=== PATIENT | female | born 1945 | race Caucasian/White ===

== ENCOUNTER → 2018-02-27 09:20 | Outpatient (CLI) | payer MEDICARE, OTHER, SELFPAY ==
[2018-02-27 12:52] LABS: Absolute Neutrophil Count 5.1 X10^3/uL (2.0-7.7); Basophil# 0.03 X10^3/uL; Basophil% 0.4 % (0-1); Eosinophil# 0.03 X10^3/uL; Eosinophils% 0.4 % (0-5); Hematocrit 42.5 % (37-47); Lymphocyte % 19.9 % (19-41); Mean Corp Hgb Conc 32.9 g/gl (32-36); Mean Corpuscular Hgb 29.8 pg (27.0-32.0); Mean Corpuscular Volume 90.4 fL (81-99); Mean Platelet Vol. 10.8 fl (6.2-12.0); Monocyte% 7.1 % (0-10); Neutrophil # 5.08 X10^3/uL (2.7-7.7); Neutrophil % 72.1 % (47-70); POSITIVE COUNT NO; POSITIVE DIFFERENTIAL NO; POSITIVE MORPHOLOGY NO; Platelet Count 259 K/mm3 (150-450); RBC Distribution Width CV 13.4 % (11.6-14.6); RBC Distribution Width SD 43.9 fl (35.1-43.9); White Blood Count 7.1 K/mm3 (4.4-11.0)
[2018-02-27 13:23] LABS: ALB/GLOB Ratio 1.2 RATIO (0.9-2.4); AST(SGOT) 17 U/L (15-37); Alanine Aminotransfer ALT/SGPT 23 U/L (13-56); Alkaline Phosphatase 85 U/L (45-117); Anion Gap 9 (5-15); BUN 19 mg/dL (7-18); BUN/Creat Ratio 23.1 RATIO (10-20); Chloride 107 mmol/L (98-107); Creatinine, Serum 0.82 mg/dL (0.55-1.02); EST Glomerular Filtration Rate 73 mL/min (>60); Est Glom Filt Rate - Afr Amer 88 mL/min (>60); Globulin 3.3 g/dL (2.2-4.2); Glucose 97 mg/dL (74-106); Potassium 4.6 mmol/L (3.5-5.1); Protein, Total 7.3 g/dL (6.4-8.2); Sodium Level 144 mmol/L (136-145); Thyroid Stim Hormone (TSH) 2.52 uIU/mL (0.358-3.74)
[2018-02-28 08:13] LABS: Hep C Antibodies <0.1 s/co ratio (0.0-0.9); Vitamin D,25 Hydroxy 21.2 ng/mL (29.95-100.01)
== END ==
PROVIDERS: Family Provider Family Medicine Geriatric Medicine; PCP Family Medicine Geriatric Medicine; Visit Provider Family Medicine Geriatric Medicine
DX: E55.9 Vitamin D deficiency, unspecified (principal); R53.83 Other fatigue; Z13.89 Encounter for screening for other disorder
CPT/HCPCS: 36415; 80053; 82306; 84443; 85025; 86803

== ENCOUNTER → 2018-04-01 10:48 | Outpatient (CLI) | payer MEDICARE, OTHER, SELFPAY | PROVIDERS: Family Provider Family Medicine Geriatric Medicine; PCP Family Medicine Geriatric Medicine; Visit Provider Family Medicine Geriatric Medicine | DX: Z78.0 Asymptomatic menopausal state (principal) | CPT/HCPCS: 77080 ==

== ENCOUNTER → 2019-03-02 | Outpatient (CLI) | payer MEDICARE, OTHER, SELFPAY ==
[2019-03-02 12:31] LABS: Absolute Lymphocyte Count 1.25 X10^3/uL (0.83-4.51); Absolute Neutrophil Count 5.6 X10^3/uL (2.0-7.7); Basophil# 0.04 X10^3/uL; Basophil% 0.5 % (0-1); Eosinophil# 0.04 X10^3/uL; Eosinophils% 0.5 % (0-5); Hematocrit 43.2 % (37-47); Hemoglobin 14.1 g/dL (12.0-15.0); Lymphocyte # 1.25 X10^3/ul (4.0); Lymphocyte % 16.8 % (19-41); Mean Corp Hgb Conc 32.6 g/dL (32-36); Mean Corpuscular Hgb 29.7 pg (27.0-32.0); Mean Corpuscular Volume 91.1 fL (81-99); Mean Platelet Vol. 10.5 fl (6.2-12.0); Monocyte# 0.48 X10^3/uL; Monocyte% 6.5 % (0-10); NRBC Flagged by Analyzer 0 % (0-5); Neutrophil # 5.59 X10^3/uL (2.7-7.7); Neutrophil % 75.2 % (47-70); Platelet Count 230 K/mm3 (150-450); RBC Distribution Width CV 12.9 % (11.6-14.6); RBC Distribution Width SD 42.5 fl (35.1-43.9); Red Blood Count 4.74 M/mm3 (4.2-5.4); White Blood Count 7.4 K/mm3 (4.4-11.0)
[2019-03-02 12:52] LABS: Vitamin D,25 Hydroxy 19.9 ng/mL (29.95-100.01)
[2019-03-02 13:27] LABS: ALB/GLOB Ratio 1.2 RATIO (0.9-2.4); AST(SGOT) 20 U/L (15-37); Alanine Aminotransfer ALT/SGPT 25 U/L (13-56); Albumin, Serum 3.8 g/dL (3.2-5.0); Alkaline Phosphatase 92 U/L (45-117); Anion Gap 9 (5-15); BUN 18 mg/dL (7-18); BUN/Creat Ratio 22.7 RATIO (10-20); Calcium,Total 8.5 mg/dL (8.5-10.1); Chloride 107 mmol/L (98-107); Creatinine, Serum 0.79 mg/dL (0.55-1.02); EST Glomerular Filtration Rate 75 mL/min (>60); Est Glom Filt Rate - Afr Amer 91 mL/min (>60); Globulin 3.3 g/dL (2.2-4.2); Glucose 89 mg/dL (74-106); Protein, Total 7.1 g/dL (6.4-8.2); Sodium Level 142 mmol/L (136-145); Thyroid Stim Hormone (TSH) 3.52 uIU/mL (0.358-3.74)
== END | disposition home or self-care (01) ==
LOC: POLAB3 10:18
PROVIDERS: Family Provider Family Medicine Geriatric Medicine; PCP Family Medicine Geriatric Medicine; Visit Provider Family Medicine Geriatric Medicine
DX: E55.9 Vitamin D deficiency, unspecified (principal); R53.83 Other fatigue
CPT/HCPCS: 36415; 80053; 82306; 84443; 85025

== ENCOUNTER → 2020-03-04 | Outpatient (CLI) | payer MEDICARE, OTHER, SELFPAY ==
[2020-03-04 12:26] LABS: Absolute Lymphocyte Count 1.53 X10^3/uL (0.83-4.51); Absolute Neutrophil Count 5.6 X10^3/uL (2.0-7.7); Basophil# 0.06 X10^3/uL; Basophil% 0.8 % (0-1); Eosinophil# 0.08 X10^3/uL; Hematocrit 43.3 % (37-47); Lymphocyte # 1.53 X10^3/ul (4.0); Lymphocyte % 19.6 % (19-41); Mean Corp Hgb Conc 32.3 g/dL (32-36); Mean Corpuscular Hgb 29.7 pg (27.0-32.0); Mean Corpuscular Volume 91.9 fL (81-99); Mean Platelet Vol. 10.6 fl (6.2-12.0); Monocyte# 0.55 X10^3/uL; Monocyte% 7.1 % (0-10); NRBC Flagged by Analyzer 0 % (0-5); Neutrophil # 5.57 X10^3/uL (2.7-7.7); Neutrophil % 71.4 % (47-70); Platelet Count 255 K/mm3 (150-450); RBC Distribution Width CV 12.7 % (11.6-14.6); Red Blood Count 4.71 M/mm3 (4.2-5.4); White Blood Count 7.8 K/mm3 (4.4-11.0)
[2020-03-04 12:45] LABS: Vitamin D,25 Hydroxy 32.2 ng/mL
[2020-03-04 12:50] LABS: ALB/GLOB Ratio 1.3 RATIO (0.9-2.4); AST(SGOT) 17 U/L (15-37); Alanine Aminotransfer ALT/SGPT 21 U/L (13-56); Albumin, Serum 3.9 g/dL (3.2-5.0); Alkaline Phosphatase 80 U/L (45-117); Anion Gap 5 (5-15); BUN 18 mg/dL (7-18); BUN/Creat Ratio 21.3 RATIO (10-20); Calcium,Total 8.7 mg/dL (8.5-10.1); Chloride 107 mmol/L (98-107); Creatinine, Serum 0.85 mg/dL (0.55-1.02); EST Glomerular Filtration Rate 70 mL/min (>60); Est Glom Filt Rate - Afr Amer 84 mL/min (>60); Globulin 3.1 g/dL (2.2-4.2); Glucose 101 mg/dL (74-106); Potassium 3.9 mmol/L (3.5-5.1); Sodium Level 141 mmol/L (136-145)
== END | disposition home or self-care (01) ==
LOC: POLAB3 10:58
PROVIDERS: PCP Family Medicine Geriatric Medicine; Visit Provider Family Medicine Geriatric Medicine
DX: E55.9 Vitamin D deficiency, unspecified (principal); R53.83 Other fatigue
CPT/HCPCS: 36415; 80053; 82306; 84443; 85025

== ENCOUNTER → 2020-04-21 | Outpatient (CLI) | payer MEDICARE, OTHER, SELFPAY ==
[2020-04-21 13:26] LABS: Thyroid Stim Hormone (TSH) 1.43 uIU/mL (0.358-3.74)
== END | disposition home or self-care (01) ==
LOC: POLAB3 12:09
PROVIDERS: PCP Family Medicine Geriatric Medicine; Visit Provider Family Medicine Geriatric Medicine
DX: E03.9 Hypothyroidism, unspecified (principal)
CPT/HCPCS: 36415; 84443

== ENCOUNTER → 2021-01-05 12:51 | Outpatient (CLI) | payer MEDICARE, OTHER, SELFPAY ==
--- NOTE | 2021-01-05 12:56 | ECHOD_ITS ---
Reason For Study: CARDIOMEGALY Procedure This was a 2D Doppler, Color Flow transthoracic echocardiogram. Exam performed in department. Left Ventricle Normal LV size. Left ventricular systolic function is normal. The estimated ejection fraction is 60 %. Stage 1 diastolic dysfunction. No regional wall motion abnormalities noted. Right Ventricle Normal RV size. Normal systolic function. Atria Normal left atrium. Normal right atrium. Mitral Valve Normal mitral valve. Tricuspid Valve Normal tricuspid valve. Mild (1+) tricuspid valve insufficiency. Pulmonary artery systolic pressure is 28 mmHg. Aortic Valve Trisinus/trileaflet aortic valve. Normal aortic valve. Mild (1+) aortic valve insufficiency. Pulmonic Valve The pulmonic valve is not well visualized. Great Vessels Normal aortic root. The pulmonary artery is normal size. Normal inferior vena cava. Pericardium/Pleural No pericardial effusion. MMode/2D Measurements & Calculations LVIDd: 3.6 cm IVSd: 0.87 cm Ao root diam: 2.7 cm LVIDs: 2.5 cm LVPWd: 0.87 cm RVDd: 2.5 cm FS: 32.6 % LAV(MOD-bp): 27.2 ml LA A4 area: 11.2 cm2 LA dimension(2D): 2.8 cm LAV(MOD-bp) Indexed: 16.8 ml/m2 LAV(MOD-sp2): 23.2 ml LAV(MOD-sp4): 24.5 ml RA A4 area: 12.4 cm2 Time Measurements MV dec time: 0.18 sec Doppler Measurements & Calculations MV E max tomás: 60.9 cm/sec Lat Peak E' Tomás: 8.9 cm/sec Med Peak E' Tomás: 6.3 cm/sec MV A max tomás: 66.5 cm/sec E/E' lat: 6.8 E/E' med: 9.7 MV E/A: 0.92 Ao V2 max: 97.1 cm/sec AI max tomás: 470.9 cm/sec LV V1 max: 94.4 cm/sec Ao max P.8 mmHg AI max P.7 mmHg LV V1 max P.6 mmHg Ao V2 mean: 62.2 cm/sec AI dec slope: 389.6 cm/sec2 LV V1 mean P.8 mmHg Ao mean P.7 mmHg AI P1/2t: 354.0 msec LV V1 mean: 62.5 cm/sec Ao V2 VTI: 19.3 cm LV V1 VTI: 20.0 cm PA V2 max: 108.9 cm/sec TR max tomás: 243.9 cm/sec TR max P.8 mmHg ECHO/Echo Complete Interpretation Summary Normal LV size. Left ventricular systolic function is normal. The estimated ejection fraction is 60 %. Stage 1 diastolic dysfunction. Mild (1+) aortic valve insufficiency. Ordering Physician: Serge Ladd Referring Physician: Serge Ladd Chi Performed By: Gianna Barr, MICHELE, RVT
--- NOTE | 2021-01-05 14:35 | BD_ITS ---
STUDY: DUAL ENERGY X-RAY ABSORPTIOMETRY / DXA REASON FOR EXAM: Female, 75 years old. [id number]. The patient is postmenopausal. TECHNIQUE: Bone Mineral Density (BMD) measurements of lumbar spine and bilateral hips were obtained. COMPARISON: Comparison is made with prior study dated 04/01/2018. FINDINGS: Lumbar Spine (L1-L4): g/cm2 (1.167) / T-score (-0.1) / Z-score (1.7) Findings are suggestive of normal bone density with a low fracture risk. Left Femur Total: g/cm2 (0.913) / T-score (-0.8) / Z-score (1.0) Left Femoral Neck: g/cm2 (0.810) / T-score (-1.6) / Z-score (0.3) Right Femur Total: g/cm2 (0.948) / T-score (-0.5) / Z-score (1.3) Right Femoral Neck: g/cm2 (0.816) / T-score (-1.6) / Z-score (0.4) The T-Scores on the most recent prior examination were: Lumbar Spine (L1-L4): There has been improvement of bone density since the previous examination. Left Femur Total: which represents a worsening of 2.8%. Right Femur Total: which represents an improvement of 1.9%. BD/Dexa Bone Density Study IMPRESSION: The patient is considered osteopenic as outlined below according to World D[employer]han Organization (WHO) criteria with a moderate fracture risk. There has been improvement of bone density since the previous examination. Reference Information: The T-score is the number of standard deviations above or below the standard which is normal for young adults at their peak bone mineral density. The World Health Organization (WHO) interprets the T-scores as follows: Above -1 Normal bone density Between -1 and -2.5 Osteopenia Equal to / or below -2.5 Osteoporosis As a practical clinical guideline, osteopenia may be graded as follows: Mild -1 through -1.5 Moderate -1.6 through -2.0 Severe -2.1 through -2.4 The Z-score is the number of standard deviations above or below age-matched controls. A Z-score of less than -1.5 would be considered abnormal. References: 1. NIH Osteoporosis and Related Bone Diseases www osteo.org 2. International Society for Clinical Densitometry www iscd.org 3. National Osteoporosis Foundation www nof.org Electronically Signed: John Hernandez MD at 15:19 EDT , Service support ,
== END ==
PROVIDERS: PCP Family Medicine Geriatric Medicine; Referring Provider Family Medicine Geriatric Medicine; Visit Provider Family Medicine Geriatric Medicine
DX: I51.7 Cardiomegaly (principal); Z78.0 Asymptomatic menopausal state
CPT/HCPCS: 77080; 93306

== ENCOUNTER → 2021-03-06 09:51 | Outpatient (CLI) | payer MEDICARE, OTHER, SELFPAY ==
[2021-03-06 12:43] LABS: Absolute Lymphocyte Count 1.23 X10^3/uL (0.83-4.51); Basophil# 0.05 X10^3/uL; Basophil% 0.7 % (0-1); Eosinophils% 1.4 % (0-5); Hematocrit 42.2 % (37-47); Hemoglobin 13.7 g/dL (12.0-15.0); Lymphocyte # 1.23 X10^3/ul (0.83-4.51); Lymphocyte % 17.6 % (19-41); Mean Corp Hgb Conc 32.5 g/dL (32-36); Mean Corpuscular Hgb 29.5 pg (27.0-32.0); Mean Corpuscular Volume 90.9 fL (81-99); Mean Platelet Vol. 10.2 fl (6.2-12.0); Monocyte# 0.61 X10^3/uL; Monocyte% 8.7 % (0-10); NRBC Flagged by Analyzer 0 % (0-5); Neutrophil # 4.99 X10^3/uL (2.7-7.7); Neutrophil % 71.3 % (47-70); Platelet Count 245 K/mm3 (150-450); RBC Distribution Width CV 13.2 % (11.6-14.6); RBC Distribution Width SD 44.4 fl (35.1-43.9); Red Blood Count 4.64 M/mm3 (4.2-5.4)
[2021-03-06 12:49] LABS: Vitamin D,25 Hydroxy 27.4 ng/mL
[2021-03-06 13:19] LABS: ALB/GLOB Ratio 1.2 RATIO (0.9-2.4); AST(SGOT) 20 U/L (15-37); Alanine Aminotransfer ALT/SGPT 27 U/L (13-56); Albumin, Serum 3.7 g/dL (3.2-5.0); Alkaline Phosphatase 82 U/L (45-117); Anion Gap 7 (5-15); BUN 20 mg/dL (7-18); BUN/Creat Ratio 25.9 RATIO (10-20); Calcium,Total 8.5 mg/dL (8.5-10.1); Chloride 106 mmol/L (98-107); Creatinine, Serum 0.77 mg/dL (0.55-1.02); EST Glomerular Filtration Rate 77 mL/min (>60); Est Glom Filt Rate - Afr Amer 93 mL/min (>60); Globulin 3.2 g/dL (2.2-4.2); Glucose 90 mg/dL (74-106); Potassium 4.1 mmol/L (3.5-5.1); Protein, Total 6.9 g/dL (6.4-8.2); Sodium Level 140 mmol/L (136-145); Thyroid Stim Hormone (TSH) 2.58 uIU/mL (0.358-3.74)
== END ==
PROVIDERS: PCP Family Medicine Geriatric Medicine; Visit Provider Family Medicine Geriatric Medicine
DX: E55.9 Vitamin D deficiency, unspecified (principal); R53.83 Other fatigue
CPT/HCPCS: 36415; 80053; 82306; 84443; 85025

== ENCOUNTER → 2021-06-05 16:21 | Outpatient (CLI) | payer MEDICARE, OTHER, SELFPAY ==
--- NOTE | 2021-06-05 16:25 | RAD_ITS ---
HISTORY: ABD PAIN. TECHNIQUE: XR Abdomen W/ Decub and/or Erect Views. # of images incl. paperwork: 3. COMPARISON: None. FINDINGS: LUNG BASES: Mild left basilar opacity, likely atelectasis. Moderate stool throughout the colon. FREE AIR: None seen on upright view. BOWEL GAS PATTERN: No dilated bowel loops identified. Moderate stool in the colon. CALCIFICATIONS: Right pelvic phlebolith noted. BONES: Mild lumbar dextrocurvature. RAD/[employer]d [employer] Decub and/or Erect IMPRESSION: Moderate stool in the colon. at 1407 Reported and signed by: Renetta Glynn MD Electronically Signed: Renetta Glynn MD at 14:06 EDT Tel , Service support ,
== END ==
PROVIDERS: PCP Family Medicine Geriatric Medicine; Referring Provider Family Medicine Geriatric Medicine; Visit Provider Family Medicine Geriatric Medicine
DX: N39.0 Urinary tract infection, site not specified (principal); R10.9 Unspecified abdominal pain
CPT/HCPCS: 74019; 87086

== ENCOUNTER → 2022-03-07 | Outpatient (CLI) | payer MEDICARE, OTHER, SELFPAY ==
[2022-03-07 12:08] LABS: Absolute Neutrophil Count 6.2 X10^3/uL (2.0-7.7); Basophil# 0.05 X10^3/uL; Basophil% 0.6 % (0-1); Eosinophil# 0.07 X10^3/uL; Eosinophils% 0.8 % (0-5); Lymphocyte % 16.4 % (19-41); Mean Corp Hgb Conc 32.6 g/dL (32-36); Mean Corpuscular Hgb 29.7 pg (27.0-32.0); Mean Corpuscular Volume 91.1 fL (81-99); Mean Platelet Vol. 10.6 fl (6.2-12.0); Monocyte# 0.77 X10^3/uL; NRBC Flagged by Analyzer 0 % (0-5); Neutrophil # 6.21 X10^3/uL (2.7-7.7); Neutrophil % 72.8 % (47-70); Platelet Count 262 K/mm3 (150-450); RBC Distribution Width CV 12.8 % (11.6-14.6); RBC Distribution Width SD 42.8 fl (35.1-43.9); Red Blood Count 4.72 M/mm3 (4.2-5.4); White Blood Count 8.5 K/mm3 (4.4-11.0)
[2022-03-07 12:32] LABS: Vitamin D,25 Hydroxy 37.5 ng/mL
[2022-03-07 12:37] LABS: ALB/GLOB Ratio 1.3 RATIO (0.9-2.4); AST(SGOT) 21 U/L (15-37); Alanine Aminotransfer ALT/SGPT 22 U/L (13-56); Albumin, Serum 3.9 g/dL (3.2-5.0); Alkaline Phosphatase 69 U/L (45-117); Anion Gap 4 (5-15); BUN 21 mg/dL (7-18); BUN/Creat Ratio 24.5 RATIO (10-20); Calcium,Total 9.4 mg/dL (8.5-10.1); Chloride 106 mmol/L (98-107); Creatinine, Serum 0.86 mg/dL (0.55-1.02); EST Glomerular Filtration Rate 68 mL/min (>60); Est Glom Filt Rate - Afr Amer 83 mL/min (>60); Globulin 3.1 g/dL (2.2-4.2); Glucose 83 mg/dL (74-106); Potassium 4.7 mmol/L (3.5-5.1); Sodium Level 141 mmol/L (136-145); Thyroid Stim Hormone (TSH) 1.92 uIU/mL (0.358-3.74)
== END | disposition home or self-care (01) ==
LOC: POLAB3 11:21
PROVIDERS: PCP Family Medicine Geriatric Medicine; Visit Provider Family Medicine Geriatric Medicine
DX: E55.9 Vitamin D deficiency, unspecified (principal); R53.83 Other fatigue
CPT/HCPCS: 36415; 80053; 82306; 84443; 85025

== ENCOUNTER → 2023-03-11 | Outpatient (CLI) | payer MEDICARE, OTHER, SELFPAY ==
[2023-03-11 12:35] LABS: Absolute Lymphocyte Count 1.38 X10^3/uL (0.83-4.51); Absolute Neutrophil Count 5.5 X10^3/uL (2.0-7.7); Basophil# 0.04 X10^3/uL; Basophil% 0.5 % (0-1); Eosinophil# 0.06 X10^3/uL; Eosinophils% 0.8 % (0-5); Hematocrit 43.1 % (37-47); Hemoglobin 14.2 g/dL (12.0-15.0); Lymphocyte # 1.38 X10^3/ul (0.83-4.51); Lymphocyte % 18.3 % (19-41); Mean Corp Hgb Conc 32.9 g/dL (32-36); Mean Corpuscular Hgb 30.3 pg (27.0-32.0); Mean Corpuscular Volume 92.1 fL (81-99); Mean Platelet Vol. 10.4 fl (6.2-12.0); Monocyte# 0.51 X10^3/uL; Monocyte% 6.8 % (0-10); NRBC Flagged by Analyzer 0 % (0-5); Neutrophil # 5.53 X10^3/uL (2.7-7.7); Neutrophil % 73.2 % (47-70); Platelet Count 243 K/mm3 (150-450); RBC Distribution Width CV 13.2 % (11.6-14.6); RBC Distribution Width SD 44.5 fl (35.1-43.9); Red Blood Count 4.68 M/mm3 (4.2-5.4); White Blood Count 7.6 K/mm3 (4.4-11.0)
[2023-03-11 12:53] LABS: Vitamin D,25 Hydroxy 37.1 ng/mL
[2023-03-11 14:35] LABS: ALB/GLOB Ratio 1.1 RATIO (0.9-2.4); AST(SGOT) 24 U/L (15-37); Alanine Aminotransfer ALT/SGPT 23 U/L (13-56); Albumin, Serum 3.7 g/dL (3.2-5.0); Alkaline Phosphatase 72 U/L (45-117); Anion Gap 5 (5-15); BUN 18 mg/dL (7-18); BUN/Creat Ratio 19.7 RATIO (10-20); Calcium,Total 8.6 mg/dL (8.5-10.1); Chloride 109 mmol/L (98-107); Creatinine, Serum 0.91 mg/dL (0.55-1.02); EST Glomerular Filtration Rate 63 mL/min (>60); Est Glom Filt Rate - Afr Amer 77 mL/min (>60); Globulin 3.3 g/dL (2.2-4.2); Glucose 102 mg/dL (74-106); Potassium 4.2 mmol/L (3.5-5.1); Sodium Level 141 mmol/L (136-145); Thyroid Stim Hormone (TSH) 2.25 uIU/mL (0.358-3.74)
== END | disposition home or self-care (01) ==
PROVIDERS: PCP Family Medicine Geriatric Medicine; Visit Provider Family Medicine Geriatric Medicine
DX: E55.9 Vitamin D deficiency, unspecified (principal); R53.83 Other fatigue
CPT/HCPCS: 36415; 80053; 82306; 84443; 85025

== ENCOUNTER → 2024-03-17 | Outpatient (CLI) | payer MEDICARE, OTHER, SELFPAY ==
[2024-03-17 10:53] LABS: Absolute Lymphocyte Count 1.33 X10^3/uL (0.83-4.51); Absolute Neutrophil Count 6.2 X10^3/uL (2.0-7.7); Basophil# 0.04 X10^3/uL; Basophil% 0.5 % (0-1); Eosinophil# 0.05 X10^3/uL; Eosinophils% 0.6 % (0-5); Hematocrit 42.2 % (37-47); Hemoglobin 13.9 g/dL (12.0-15.0); Lymphocyte # 1.33 X10^3/ul (0.83-4.51); Mean Corp Hgb Conc 32.9 g/dL (32-36); Mean Corpuscular Hgb 29.9 pg (27.0-32.0); Mean Corpuscular Volume 90.8 fL (81-99); Mean Platelet Vol. 10.7 fl (6.2-12.0); Monocyte# 0.66 X10^3/uL; NRBC Flagged by Analyzer 0 % (0-5); Neutrophil # 6.18 X10^3/uL (2.7-7.7); Neutrophil % 74.5 % (47-70); Platelet Count 243 K/mm3 (150-450); RBC Distribution Width CV 12.9 % (11.6-14.6); RBC Distribution Width SD 42.6 fl (35.1-43.9); Red Blood Count 4.65 M/mm3 (4.2-5.4); White Blood Count 8.3 K/mm3 (4.4-11.0)
[2024-03-17 11:40] LABS: ALB/GLOB Ratio 1.1 RATIO (0.9-2.4); AST(SGOT) 18 U/L (15-37); Alanine Aminotransfer ALT/SGPT 22 U/L (13-56); Albumin, Serum 3.8 g/dL (3.2-5.0); Alkaline Phosphatase 77 U/L (45-117); Anion Gap 5 (5-15); BUN 19 mg/dL (7-18); BUN/Creat Ratio 21.1 RATIO (10-20); Calcium,Total 9.2 mg/dL (8.5-10.1); Chloride 107 mmol/L (98-107); EST Glomerular Filtration Rate 64 mL/min (>60); Est Glom Filt Rate - Afr Amer 78 mL/min (>60); Globulin 3.4 g/dL (2.2-4.2); Glucose 101 mg/dL (74-106); Protein, Total 7.2 g/dL (6.4-8.2); Sodium Level 141 mmol/L (136-145)
== END | disposition home or self-care (01) ==
PROVIDERS: PCP Family Medicine Geriatric Medicine; Visit Provider Family Medicine Geriatric Medicine
DX: R53.83 Other fatigue (principal); E55.9 Vitamin D deficiency, unspecified
CPT/HCPCS: 36415; 80053; 82306; 84443; 85025

== ENCOUNTER → 2024-12-23 | Outpatient (CLI) | payer MEDICARE, OTHER, SELFPAY ==
--- NOTE | 2024-12-23 13:51 | LES_PTH ---
PATIENT: RENET[facility] LA [facility] U[facility][id number] AGE/SX: 79/F ROOM: RE12/23/[address]: Dr. Serge Ladd MD : 1945 BED: DIS: 12/23/2024 SPEC #: [id number] RECD: 12/23/24 17:55 STATUS: SADAF LUIS MANUEL #: [id number] JIMMIE: 12/23/24 13:[address]: Serge Ladd Chi DEPT: SURGICAL PATHOLOGY RECD BY: Arturo David Tissues: A - Skin of leg, NOS Procedures: Surgery Specimen Level IV HEADER OPERATION: Not noted PRE-OP DIAGNOSIS: Inflamed seborrheic keratosis, disorder of skin and subcutaneous tissue, unspecified TISSUE SUBMITTED: A- Right hip lesion MICROSCOPIC DIAGNOSIS A. Skin, right hip, shave biopsy: * Verrucous keratosis with acute and chronic inflammation - see note. * Note: The entire base of the lesion is not observed in this shaved specimen. MICROSCOPIC DESCRIPTION Slides are reviewed. GROSS DESCRIPTION A. Received in formalin in a container labeled with the patient's name, date of , and R hip is an unoriented and irregular skin shave measuring 1.1 x 1.0 cm with a depth of 0.1 cm. The white-ramirez epidermis is notable for a 0.8 x 0.7 x 0.5 cm roughened and ramirez nodule situated 0.1 cm from the peripheral margin. The deep margin is inked green, and it is quadrisected to reveal that the nodule exhibits carlin and indurated surfaces that appear to abut the deep margin. Submitted entirely in A1. [facility] 12-24-2024 CPT:73355
== END | disposition home or self-care (01) ==
LOC: LABSPEC 16:52
PROVIDERS: PCP Family Medicine Geriatric Medicine; Referring Provider Family Medicine Geriatric Medicine; Visit Provider Family Medicine Geriatric Medicine
DX: L82.0 Inflamed seborrheic keratosis (principal)
CPT/HCPCS: 88305

== ENCOUNTER → 2025-03-18 | Outpatient (CLI) | payer MEDICARE, OTHER, SELFPAY ==
[2025-03-18 10:10] LABS: Hematocrit 41.5 % (37-47); Hemoglobin 13.5 g/dL (12.0-15.0); Immature Granulocytes Count 0.020 X10^3/uL (0.0-0.0); Mean Corp Hgb Conc 32.5 g/dL (32-36); Mean Corpuscular Volume 91.2 fL (81-99); Mean Platelet Vol. 10.1 fl (6.2-12.0); NRBC Flagged by Analyzer 0 % (0-5); Platelet Count 229 K/mm3 (150-450); RBC Distribution Width CV 13.2 % (11.6-14.6); RBC Distribution Width SD 44.3 fl (35.1-43.9); Red Blood Count 4.55 M/mm3 (4.2-5.4); White Blood Count 7.9 K/mm3 (4.4-11.0)
[2025-03-18 11:24] LABS: AST(SGOT) 27 U/L (<=31); Alanine Aminotransfer ALT/SGPT 19 U/L (<=34); Albumin, Serum 4.5 g/dL (3.4-4.8); Alkaline Phosphatase 77 U/L (35-104); Anion Gap 12 (5-15); BUN 21 mg/dL (4-19); BUN/Creat Ratio 26.1 RATIO (10-20); Calcium,Total 9.0 mg/dL (7.6-11.0); Carbon Dioxide 24.7 mmol/L (21.0-32.0); Chloride 105 mmol/L (98-108); Globulin 2.3 g/dL (2.2-4.2); Glucose 104 mg/dL (70-99); Potassium 4.3 mmol/L (3.3-5.1); Vitamin D,25 Hydroxy 39.3 ng/mL (30-100)
[2025-03-18 17:59] LABS: Xtra Tube Kwok EXTRA TUBE
== END | disposition home or self-care (01) ==
PROVIDERS: PCP Family Medicine Geriatric Medicine; Visit Provider Family Medicine Geriatric Medicine
DX: E03.9 Hypothyroidism, unspecified (principal); E55.9 Vitamin D deficiency, unspecified; R53.83 Other fatigue
CPT/HCPCS: 36415; 80053; 82306; 84443; 85025

== ENCOUNTER → 2025-05-11 | Outpatient (CLI) | payer MEDICARE, OTHER, SELFPAY ==
--- OUTSIDE RECORDS SUMMARY | 2025-01-26 14:36 | XMS RPT_ITS ---
Author Name Auto Generated Organization [facility] Care Team Providers [facility] Specialist Name Role Phone SAMANTHA, PHYLICIA CHI Primary Care Unavailable VINCE JO Attending Unavailable SAMANTHA, PHYLICIA CHI Primary Care Unavailable KATHRINE, IESHA L Attending Unavailable SAMANTHA, PHYLICIA CHI Primary Care Unavailable KATHRINE, IESHA L Admitting Unavailable KATHRINE, IESHA L Referring Unavailable ADDISON MICHELLE Attending UnaDODIE Peguero Referring Unavaila ble SAMANTHA, PHYLICIA CHI Admitting Unavailable SAMANTHA, PHYLICIA CHI Primary Care Unavailable KATHRINE, IESHA L Referring Unavailable SAMANTHA, PHYLICIA CHI Primary Care Unavailable KATHRINE, IESHA L Attending Unavailable KATHRINE, IESHA L Attending Unavailable KATHRINE, IESHA L Referring Unavailable SAMANTHA, PHYLICIA CHI Primary Care Unavailable KATHRINE, IESHA L Referring Unavailable SAMANTHA, PHYLICIA CHI Primary Care Unavailable KATHRINE, IESHA Attending Unavailable DODIE MONTANO Referring Unavaila ble SAMANTHA, PHYLICIA CHI Admitting Unavailable SAMANTHA, PHYLICIA CHI Primary Care Unavailable PROBLEMS DATE TYPE CONDITION / CODE ATTENDING STATUS [facility] 03/22/2021 Admitting diagnosis 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) ADDISON MICHELLE ADDISON [facility] 03/01/2021 Admitting diagnosis Other specified disorders of bone density and structure, unspecified site / M85.80(ICD-10) [place]DIS[place] [facility] [place]mitting diagnosis Personal history of irradiation / Z92.3(ICD-10) [facility] 2025 Admitting diagnosis Encounter for screening for cardiovascular disorders / Z13.6(ICD-10) [facility] 11/30/2024 Admitting diagnosis Asymptomatic menopausal state / Z78.0(ICD-10) [facility] 06/06/2021 Admitting diagnosis FDC (current) use of aromatase inhibitors / Z79.811(ICD-10) NA [facility] 07/15/2024 Admitting diagnosis Follow-up / UNK(Unknown) VINCE JO [facility] 07/13/2024 Admitting diagnosis Encounter for screening mammogram for malignant neoplasm of breast / Z12.31(ICD-10) [facility] PROCEDURES No Procedure Records Found RESULTS PHOSPHATE ( PHOSPHORUS) Collected: 03/25/2025 1:04 PM Status: F Source: [facility] Order Comment: FASTING:NO FASTING: NO TYPE CODE TESTS RESULT OUT OF RANGE REFERENCE UNITS LAB [id number] PHOSPHATE ( PHOSPHORUS) 4.9 High 2.1-4.3 mg/dL Performed By: #### 61763, 16 293 #### [facility], [address] [place] [address] Telepathist: Tamara Siu MD,PhD,ROMULO #### 745, 60135, 1005 #### [facility] [address] , [address] [place] [address] Telepathist: Rafael Muse MD IGF 1, LC/MS Collected: 5 1:04 PM Status: F Source: [facility] TYPE CODE TESTS RESULT OUT OF RANGE REFERENCE UNITS LAB [id number] IGF 1, LC/MS 91 34-246 ng/mL LAB [id number] Z SCORE (FEMALE) -0.2 -2.0 - +2.0 SD Result Comment: This test was developed and its analytical performance characteristics have been determined by [facility]. It has not been cleared or approved by the FDA. This assay has been validated pursuant to the CLIA regulations and is used for clinical purposes. Performed By: #### 24095, 16 293 #### [facility], [address] [place] [address] Telepathist: Tamara Siu MD,PhD,ROMULO #### 718, 01869, 1005 #### [facility] [address], [address] [place] [address] Telepathist: Rafael Muse MD TEST AUTHORIZATION 2 Collected: 025 1:04 PM Status: F Source: [facility] TYPE CODE TESTS RESULT OUT OF RANGE REFERENCE UNITS LAB [id number] TEST NAME: IGF 1, LC/MS LAB [id number] TEST CODE: [id number] LAB [id number] CLIENT CONTACT: [facility] [id number] REPORT ALWAYS MESSAGE SIGNATURE Result Comment: The laboratory testing on this patient was verbally requested or confirmed by the ordering physician or his or her authorized chemical sales representative after contact with an employee of [employer]. Federal regulations require that we maintain on file written authorization for all laboratory testing. Accordingly we are asking that the ordering physician or his or her authorized chemical sales representative sign a copy of this report and promptly return it to the client analyst. Signature: Performed By: #### 77540, 16 293 #### [facility], [address] [place] [address] Telepathist: Tamara Siu MD,PhD,ROMULO #### 718, 85337, 1005 #### [facility] [address] Telepathist: Rafael Muse MD IGF BINDING PROTEIN 1 (IGFBP 1) Collect ed: 03/25/2025 1:04 PM Status: F Source: [facility] TYPE CODE TESTS RESULT OUT OF RANGE REFERENCE UNITS LAB [id number] IGF BINDING PROTEIN 1 (IGFBP 1) 13 5-34 ng/mL Result Comment: The limit of detection of this assay is 5 ng/mL. A proportion of normal patients will have results less than 5 ng/mL. This test was developed and its analytical performance characteristics have been determined by [employer]. It has not been cleared or approved by the FDA. This assay has been validated pursuant to the CLIA regulations and is used for clinical purposes. Performed By: #### 65318, 16 293 #### [facility], [address] [place] [address] Telepathist: Tamara Siu MD,PhD,ROMULO #### 718, 73979, 1005 #### [facility] [place] [address] Telepathist: Rafael Muse MD TEST AUTHORIZATION Collected: 1:04 PM Status: F Source: [facility] TYPE CODE TESTS RESULT OUT OF RANGE REFERENCE UNITS LAB [id number] TEST NAME: IGF BINDING PROTEIN 1 LAB [id number] TEST CODE: [id number] LAB [id number] CLIENT CONTACT: TEMITOPE [facility] [id number] REPORT ALWAYS MESSAGE SIGNATURE Result Comment: The laboratory testing on this patient was verbally requested or confirmed by the ordering physician or his or her authorized chemical sales representative after contact with an employee of [employer]. Federal regulations require that we maintain on file written authorization for all laboratory testing. Accordingly we are asking that the ordering physician or his or her authorized chemical sales representative sign a copy of this report and promptly return it to the client analyst. Signature: LAB [id number] COMMENT Result Comment: Please have the ordering physician or his or her authorized chemical sales representative sign a copy of this report and promptly return it by faxing it to: [phone] or by returning the form to your project administrator. Performed By: #### 55948, 16 293 #### [facility], [address] [place] [address] Telepathist: Tamara Siu MD,PhD,ROMULO #### 718, 19350, 1005 #### [facility] [address], [address] [place] [address] Telepathist: Rafael Muse MD PTH, INTACT AND CALCIUM Collected: 01/10 10:16 AM Status: F Source: [facility] Order Comment: FASTING:YES FASTING: YES TYPE CODE TESTS RESULT OUT OF RANGE REFERENCE UNITS LAB [id number] PARATHYROID HORMONE, INTACT 36 Normal 16-77 pg/mL Result Comment: Interpretive Guide Intact PTH Calcium ------- Normal Parathyroid Normal Normal Hypoparathyroidism Low or Low Normal Low Hyperparathyroidism Primary Normal or High High Secondary High Normal or Low Tertiary High High Non-Parathyroid Hypercalcemia Low or Low Normal High LAB [id number] CALCIUM 9.4 Normal 8.6-10.4 mg/dL Performed By: #### 96718 ### # [facility] [address] [address], [address] [place] [address] Telepathist: Adi Yañez MD,PhD #### 11380, 78655 #### [facility] [address] [facility] [place] [address] Telepathist: Gary Sánchez M.D.,PhD #### 735, 0069, 062, 381, 72430, 15703, 375, 718, 223 #### [facility] [address], [address] [place] [address] Telepathist: Rafael Muse MD #### 87831 #### [facility], [address] [place] [address] Telepathist: Tamara Siu MD,PhD,ROMULO CELIAC DISEASE COMPREHENSIVE PANEL Collected: 01/25/2025 10:16 AM Status: F Source: [facility] TYPE CODE TESTS RESULT OUT OF RANGE REFERENCE UNITS LAB [id number] INTERPRETATION see note Result Comment: No serologic al evidence of celiac disease. tTG IgA may normalize in individuals with celiac disease who maintain a gluten-free diet. Consider HLA DQ2 and DQ8 testing to rule out celiac disease. Celiac disease is extremely rare in the absence of DQ2 or DQ8. LAB [id number] TISSUE TRANSGLUTAMINASE AB, IGA <1.0 <15.0 U/mL Result Comment: Value Interpretation <15.0 Antibody not detected > or = 15.0 Antibody detected LAB [id number] IMMUNOGLOBULIN A 119 70-320 mg/dL Performed By: #### 85199 ### # [facility] [address] [address], [address] [place] [address] Telepathist: Adi Yañez MD,PhD #### 02226, 92237 #### [facility] [address] [facility] [place] [address] Telepathist: Gary Sánchez M.D.,PhD #### 306, 8837, 622, 381, 16032, 15068, 375, 718, 223 #### [facility] [address], [address] [place] [address] Telepathist: Rafael Muse MD #### 58311 #### [facility], [address] [place] [address] Telepathist: Tamara Siu MD,PhD,ROMULO ALBUMIN Collected: 10:16 AM Status: F Source: [facility] TYPE CODE TESTS RESULT OUT OF RANGE REFERENCE UNITS LAB [id number] ALBUMIN 4.4 Normal 3.6-5.1 g/dL Performed By: #### 16782 ### # [facility] [address] [address], [address] [place] [address] Telepathist: Adi Yañez MD,PhD #### 45295, 42152 #### [facility]/[address] [facility] [address] [place] Telepathist: Gary Sánchez M.D.,PhD #### 306, 8837, 622, 381, 52749, 56216, 375, 718, 223 #### [facility] [address], [address] [place] [address] Telepathist: Rafael Muse MD #### 59325 #### [facility]/[address] [address] Telepathist: Tamara Siu MD,PhD,ROMULO CREATININE Collected: 10:16 AM Status: F Source: [facility] TYPE CODE TESTS RESULT OUT OF RANGE REFERENCE UNITS LAB [id number] CREATININE 0.90 Normal 0.60-0.95 mg/dL LAB [id number] EGFR 65 Normal > OR = 60 mL/min/1. 73m2 Performed By: #### 03578 ### # [facility] [address] [place] [address], [address] [place] [address] Telepathist: Adi Yañez MD,PhD #### 73231, 29860 #### [facility] [address] [facility] [address] [place] Telepathist: Gary Sánchez M.D.,PhD #### 306, 8837, 622, 381, 71292, 58671, 375, 718, 223 #### [facility] [address], [address] [place] [address] Telepathist: Rafael Muse MD #### 34566 #### [facility], [address] [place] [address] Telepathist: Tamara Siu MD,PhD,ROMULO CREATININE, 24 HOUR URINE Collected: 10:16 AM Status: F Source: [facility] TYPE CODE TESTS RESULT OUT OF RANGE REFERENCE UNITS LAB [id number] CREATININE, 24 HOUR URINE 0.76 Normal 0.50-2.15 g/24 h Result Comment: URINE VOLUME : Performed By: #### 07616 ### # [facility] [address] [address], [address] [place] [address] Telepathist: Adi Yañez MD,PhD #### 14354, 49913 #### [facility] [address] [facility] [place] Telepathist: Gary Sánchez M.D.,PhD #### 306, 8837, 622, 381, 30772, 71453, 375, 718, 223 #### [facility] [address] [facility], [address] [place] [address] Telepathist: Rafael Muse MD #### 98928 #### [facility], [address] [place] [address] Telepathist: Tamara Siu MD,PhD,ROMULO MAGNESIUM Collected: 10:16 AM Status: F Source: [facility] TYPE CODE TESTS RESULT OUT OF RANGE REFERENCE UNITS LAB [id number] MAGNESIUM 2.2 Normal 1.5-2.5 mg/dL Performed By: #### 18886 ### # [facility] [address], [address] [place] [address] Telepathist: Adi Yañez MD,PhD #### 30510, 14760 #### [facility] [address] [facility] [address] [place] Telepathist: Gary Sánchez M.D.,PhD #### 306, 8837, 622, 381, 18739, 00725, 375, 718, 223 #### [facility] [address] [address] Telepathist: Rafael Muse MD #### 16797 #### [facility], [address] [place] [address] Telepathist: Tamara Siu MD,PhD,ROMULO PHOSPHATE ( PHOSPHORUS) Collected: 10:16 AM Status: F Source: [facility] TYPE CODE TESTS RESULT OUT OF RANGE REFERENCE UNITS LAB [id number] PHOSPHATE ( PHOSPHORUS) 5.3 High 2.1-4.3 mg/dL Performed By: #### 73978 ### # [facility] [address] [address], [address] [place] [address] Telepathist: Adi Yañez MD,PhD #### 26776, 32272 #### [facility] [address] [facility] [place] [address] Telepathist: Gary Sánchez M.D.,PhD #### 306, 8837, 622, 381, 44757, 60796, 375, 718, 223 #### [facility] [address], [address] [place] [address] Telepathist: Rafael Muse MD #### 27581 #### [facility], [address] [place] [address] Telepathist: Tamara Siu MD,PhD,ROMULO C TELOPEPTIDE (CTX) Collected: 01/26/20 10:16 AM Status: F Source: [facility] TYPE CODE TESTS RESULT OUT OF RANGE REFERENCE UNITS LAB [id number] C TELOPEPTIDE (CTX) 63 see note pg/mL Result Comment: Unable to flag abnormal result(s), please refer to reference range(s) below: Reference Range, Females: <5 years: Not Established 5-9 years: 574-1849 pg/mL 10-13 years: 519-2415 pg/mL 14-17 years: 242-1291 pg/mL 18-29 years: 64-640 pg/mL 30-39 years: 60-650 pg/mL 40-49 years: 50-465 pg/mL >49 years: Not Established No reference range is provided for postmenopausal women because of the increased rate of bone turnover post-menopause. It is recommended that results for postmenopausal women be compared to the premenopausal reference range as this will give a better indication of their rate of bone loss. For additional information, please refer to https://education.[employer]/faq/PFI623 (This link is being provided for informational/ educational purposes only.) Performed By: #### 10102 ### # [facility] [address] [address], [address] [place] [address] Telepathist: Adi Yañez MD,PhD #### 88128, 63802 #### [facility] [address] [facility] [place] Telepathist: Gary Sánchez M.D.,PhD #### 306, 8837, 622, 381, 31933, 82138, 375, 718, 223 #### [facility] [address], [address] [place] [address] Telepathist: Rafael Muse MD #### 77666 #### [facility] [address] [address] Telepathist: Tamara Siu MD,PhD,ROMULO CALCIUM, 24 HOUR URINE (W/O CREATININE) Collected: 01/25/2025 10:16 AM Status: F Source: [facility] TYPE CODE TESTS RESULT OUT OF RANGE REFERENCE UNITS LAB [id number] TOTAL VOLUME 2000 mL LAB [id number] CALCIUM, 24 HOUR URINE 114 35-250 mg/24 h Result Comment: Low Calcium Diet: 35-200 mg/24h Performed By: #### 78805 ### # [facility] [address] [address], [address] [place] [address] Telepathist: Adi Yañez MD,PhD #### 77442, 89243 #### [facility] [address] [facility] [place] Telepathist: Gary Sánchez M.D.,PhD #### 306, 8837, 622, 381, 63767, 29270, 375, 718, 223 #### [facility] [address] [place] [address], [address] [place] [address] Telepathist: Rafael Muse MD #### 47779 #### [facility], [address] [place] [address] Telepathist: Tamara Siu MD,PhD,ROMULO KAPPA/LAMBDA LIGHT CHAINS FR EE WITH RATIO, SERUM Collected: 01/25/2025 10:16 AM Status: F Source: [facility] TYPE CODE TESTS RESULT OUT OF RANGE REFERENCE UNITS LAB [id number] KAPPA LIGHT CHAIN, FREE, SERUM 17.1 Normal 3.3-19.4 mg/L LAB [id number] LAMBDA LIGHT CHAIN, FREE, SERUM 11.1 Normal 5.7-26.3 mg/L LAB [id number] KAPPA/JONES DA LIGHT CHAINS FREE WITH RATIO, SERUM 1.54 Normal 0.26-1.65 Result Comment: Free kappa/l ambda ratio in serum of normal individuals is 0.26-1.65. Excess production of free kappa or lambda chains can alter this ratio. Monoclonal free light chains are found in serum of patients with multiple myeloma, Waldenstrom's macroglobulinemia, mu-heavy chain disease, primary amyloidosis, light chain deposition disease, monoclonal gammopathy of undetermined significance, and lymphoproliferative disorders. Measurement of free light chain concentration in serum is useful for diagnosis, prognosis, monitoring disease activity and following response to therapy of these disorders. Performed By: #### 13490 ### # [facility] [address] [address], [address] [place] [address] Telepathist: Adi Yañez MD,PhD #### 33873, 94495 #### [facility] [address] [place] Telepathist: Gary Sánchez M.D.,PhD #### 306, 8837, 622, 381, 88713, 75098, 375, 718, 223 #### [facility] [address], [address] [place] [address] Telepathist: Rafael Muse MD #### 29141 #### [facility], [address] [place] [address] Telepathist: Tamara Siu MD,PhD,ROMULO VITAMIN D,25-OH,TOTAL,IA Collected: 10:16 AM Status: F Source: [facility] TYPE CODE TESTS RESULT OUT OF RANGE REFERENCE UNITS LAB [id number] VITAMIN D,25-OH,TOT AL,IA 53 Normal 30-100 ng/mL Result Comment: Vitamin D St [facility] 25-OH Vitamin D: Deficiency: <20 ng/mL Insufficiency: 20 - 29 ng/mL Optimal: > or = 30 ng/mL For 25-OH Vitamin D testing on patients on D2-supplementation and patients for whom quantitation of D2 and D3 fractions is required, the [facility](TM) 25-OH VIT D, (D2,D3), LC/MS/MS is recommended: order code [id number] (patients >2yrs). See Note 1 Note 1 For additional information, please refer to http://education.B[employer].Edkimo/faq/RZG342 (This link is being provided for informational/ educational purposes only.) Performed By: #### 73546 ### # [facility] [address] [address], [address] [place] [address] Telepathist: Adi Yañez MD,PhD #### 44602, 76443 #### [facility] [address] [place] Telepathist: Gary Sánchez M.D.,PhD #### 306, 8837, 622, 381, 47694, 32353, 375, 718, 223 #### [facility] [address], [address] [place] [address] Telepathist: Rafael Muse MD #### 48386 #### [facility], [address] [place] [address] Telepathist: Tamara Siu MD,PhD,ROMULO CALCIUM, IONIZED Collected: 10:16 AM Status: F Source: [facility] TYPE CODE TESTS RESULT OUT OF RANGE REFERENCE UNITS LAB [id number] CALCIUM, IONIZED 5.1 Normal 4.7-5.5 mg/dL Performed By: #### 74164 ### # [facility] [address] [place] [address], [address] [place] [address] Telepathist: Adi Yañez MD,PhD #### 76255, 20666 #### [facility] [facility] [place] [address] Telepathist: Gary Sánchez M.D.,PhD #### 306, 8837, 622, 381, 67192, 78337, 375, 718, 223 #### [facility] [address], [address] [place], [place] [address] Telepathist: Rafael Muse MD #### 49961 #### [facility], [address] [place] [address] Telepathist: Tamara Siu MD,PhD,ROMULO SODIUM W/O CREATININE, 24 HO UR URINE Collected: 01/25/2025 10:16 AM Status: F Source: [facility] TYPE CODE TESTS RESULT OUT OF RANGE REFERENCE UNITS LAB [id number] SODIUM, 24 HOUR URINE 80 52-380 mmol/24 h Result Comment: TE [facility] [address],[address] [facility] [address] Adi Yañez MD, PhD Performed By: #### 18045 ### # [facility] [address] [place] [address], [address] [place] [address] [place] [address] Telepathist: Adi Yañez MD,PhD #### 68492, 04088 #### [facility] [address] [facility] [address] [place] Telepathist: Gary Sánchez M.D.,PhD #### 306, 8837, 622, 381, 14564, 10380, 375, 718, 223 #### [facility] [address] [facility], [address] [place] [address] Telepathist: Rafael Muse MD #### 26209 #### [facility] [address] [address] Telepathist: Tamara Siu MD,PhD,ROMULO PROTEIN ELECTROPHORESIS, BLOOD Collecte d: 01/25/2025 10:13 AM Status: F Source: [facility] TYPE CODE TESTS RESULT OUT OF RANGE REFERENCE UNITS LAB TP TOTAL PROTEIN 6.3 6.0-8.0 g/dL LAB ALBSPE ALBUMIN ELP, BLOOD 3.8 3.1-5.5 g/dL LAB ALPHA1 ALPHA 1 0.2 0.2-0.5 g/dL LAB ALPHA2 ALPHA 2 0.7 0.4-1.1 g/dL LAB BETAGLOB BETA GLOBULIN 1.0 0.6-1.3 g/dL LAB GAMMA GAMMA GLOBULIN 0.7 0.6-1.8 g/dL LAB COMSPE REVIEWED BY Reviewed by Pathologist: Ivy Palacio MD LAB INTERPRSPE SPEP INTERPRETATION Normal pattern. Serum protein electrophoresis is insufficient to rule out a monoclonal protein. Recommend serum immunofixation and serum free light chains if clinically indicated. Performed By: #### 62984 ### # [facility] [place], [place] [address] Alan Rojas M.D. [id number] IMMUNOFIXATION, SERUM Collected: 2024 10:13 AM Status: F Source: [facility] TYPE CODE TESTS RESULT OUT OF RANGE REFERENCE UNITS LAB SIFIX IMMUNOFIXATION, SERUM Normal Normal LAB COMSIFIX SIFIX INTERPRETATION No paraproteins detected. A negative serum immunofixation and/or serum protein electrophoresis is insufficient to rule out a monoclonal protein. Recommend serum free light chains if clinically indicated. Reviewed by Pathologist: Ivy Palacio MD. Performed By: #### 95046 ### # [facility] [address] [address] Alan Rojas M.D. [id number] PROGRESS Observed: 01/13/2025 2:00 PM Status: COMPLETED Source: [facility] Reason for visit/chief compl aint: management of osteopenia. On Prolia Date: 01/13/2025 Referring Provider: Iesha Chisholm CNP Primary Care Provider: Phylicia Singh Chi, MD HPI: Ms. Johnson is a 80 y.o. female with hx of arthritis, breast cancer s/p surgery 2020, XRT and hormonal therapy, hypothyroidism. Anastrozole was started in 01/2021 with plans to keep till 02/2026. Osteopenia was diagnosed in ?0958-4953 per patient. There is no personal history of fractures. She has had pharmacologic therapy for osteoporosis/osteopenia. Prolia 06/2021 receiving regularly every ~6 months (only 1 time was delayed 1 month due to tooth extraction), next dose is scheduled for next week; has been well tolerated with no side effects/complications Compared to historical young adult height of 5' 3.75 she has had <1 height loss. Mother had hx of osteoporosis but no fracture. she does not have frequent falls, a fear of falling, or poor balance. Dental issues: no, sees dentist regularly every 6-12 months GERD/esophageal issues: no Her age of menarche was 14 years. She had regular monthly menses. She has never been . Age of menopause was 55 years. There was no hysterectomy/oophorectomy. She took no estrogen replacement Therapy. Current food sources of calcium include cup of milk daily at least, sometimes 2, cheese/yogurt daily, broccoli every other day, almonds. 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 (positives are in bold) Contraindications to teriparatide/abaloparatide: prior XRT, cancer in bone (e.g. prior osteosarcoma), Paget's disease of bone, hyperparathyroidism/hypercalcemia Cardiac risk factors: personal history of PA, CVA; known coronary or cerebrovascular disease; HTN, DM, cigarettes, family history (positives are in bold) There is no history of prolonged course of immobilization, hyperthyroidism, nephrolithiasis, hypercalcemia, diabetes mellitus, renal or hepatic failure, malabsorption, eating disorder, lactose intolerance, organ transplantation, bariatric or gastric surgery, rheumatoid arthritis. She has no gastroesophageal reflux disease and is unaware of hiatal hernia, esophageal diverticulum, stricture, web, ring, or achalasia. There is no history of deep vein thrombosis, pulmonary embolus, coronary artery disease, myocardial infarction,cerebrovascular accident or breast cancer. She does not smoke cigarettes. She rarely consumes alcohol. She has no history of prolonged course of glucocorticoid, anticonvulsant, heparin, thyroid hormone, benzodiazepine, aromatase inhibitor, GnRH agonist, androgen receptor antagonist, lithium, vitamin A. Thiazolidinedione, SSRI use. No biotin, MVI, B-complex (used MVI/B in the past not recently). Review of Systems: as per HPI Medical History: Past Medical History: Diagnosis Date Arthritis Breast cancer (HCC) 12/09/2020 left breast pTis Nx Mx, Stage 0 Complication of anesthesia slow to wake Hypothyroidism PONV (postoperative nausea and vomiting) Surgical History: Past Surgical History: Procedure Laterality Date BREAST BIOPSY Right 08/12/1989 benign, recurrent phyllodes tumor BREAST BIOPSY Left 01/23/2000 fibrocystic change and ductal epithelial hyperplasia without atypia BREAST EXCISIONAL BIOPSY Left 01/23/2000 fibrocystic changes BREAST LUMPECTOMY BREAST MASS W/ NEEDLE LOC Left 12/09/2020 Procedure: EXCISION MASS BREAST WITH NEEDLE LOCALIZATION; Surgeon: Vince Jo MD; Location: Main OR; Service: General Surgery CATARACT EXTRACTION, BILATERAL Bilateral left 01/22/18, right 01/08/18 COLONOSCOPY N/A 05/30/2021 Procedure: COLONOSCOPY WITH PEDIATRAC SCOPE; Surgeon: Vince Jo MD; [place] [facility] [place] Service: 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 , Wt Readings from Last 3 Encounters: 01/13/25 54.3 kg (119 lb 11.2 oz) 11/30/24 54.5 kg (120 lb 1.6 oz) 07/15/24 55.3 kg (122 lb) General/Constitutional: , well-developed and in no distress Neck: no hump Cardiovascular: regular rhythm Pulmonary/Chest: effort normal Musculoskeletal: nomal range of motion, normal muscle mass, no spine/thigh tenderness Neurological: alert and oriented, no focal deficits, no tremors, DTRs normal Skin: warm Psychiatric: appropriate affect Lab/Imaging Data: Lab Results Component Value Date WBC 8.88 11/30/2020 HGB 14.1 11/30/2020 HCT 43.3 11/30/2020 MCV 89.6 11/30/2020 PLT 281 11/30/2020 Lab Results Component Value Date GLUCOSE 102 (H) 11/30/2020 NA 141 11/30/2020 K 4.4 11/30/2020 CL 109 (H) 11/30/2020 BUN 14 11/30/2020 CREATININE 0.83 11/30/2020 Lab Results Component Value Date ALT 27 11/30/2020 AST 18 11/30/2020 ALKPHOS 96 11/30/2020 BILITOT 0.5 11/30/2020 No results found for: TSH, Z4SOCFP, THYROIDAB Lab Results Component Value Date CALCIUM 9.3 11/30/2020 No results found for: HGBA1C No results found for: LDLCALC, CHOL, HDL, TRIG, CHOLHDL No results found for: MICROALBUR, [id number] No results found for: CPEPTIDE 03/11/2023: Vit D 37.1, eHGR 63, alb 3.7, Ca 8.6 03/17/2024: alb 3.8, ALP 77 (normal), ALT/AST normal, julian normal, Ca 9.2, cr 0.9, eGFR 64, glu 101, K 4, Na 141, TSH 2.7, vit D 48 DXA 12/28/24: COMPARISON: DEXA scan 12/25/2022 TECHNIQUE: Bone mineral density measurements were acquired at the lumbar spine and left hip. Instrument: The examination was done at [facility]. Thumbs Up; serial number: [id number]. FINDINGS: BONE MINERAL DENSITY DETERMINATION: Femoral Neck * Density (g/cm2): 0.706 * T Score: -1.3 * Prior BMD (g/cm2): 0.674 * % Change: N/A% * Statistically Significant: N/A Total Hip * Density (g/cm2): 0.893 * T Score: -0.4 * Prior BMD (g/cm2): 0.953 * % Change: -6.3% * Statistically Significant: Yes Spine (L1-L4) * Density (g/cm2): 1.018 * T Score: -0.3 * Prior BMD (g/cm2): 0.965 * % Change: 5.6% * Statistically Significant: Yes Forearm * Density (g/cm2): N/A * T Score: N/A * Prior BMD (g/cm2): N/A * % Change: N/A% * Statistically Significant: N/A The average bone mineral density (g/cm2) was measured. Final categorization is based on the lowest T-score of the above, as recommended by the International Society of Clinical Densitometry. FRAX Score: FRAX not reported because: The patient is being treated for osteoporosis IMPRESSION: Osteopenia. Assessment and plan: Ms. Johnson is a 80 y.o. female with hx of arthritis, breast cancer s/p surgery 2020, XRT and hormonal therapy, hypothyroidism. Osteopenia: -With no hx of fragility fractures. -Risk factors include postmenopausal status, taking anastrozole (2020-planned till 02/2026). Additional/repeat labs as below. -Repeat DXA in 12/2024 showed osteopenia with possible improvement at lumbar spine but possible worsening at total hip (but possible improvement at neck); I believe the lower line in KORTNEY from 2023 was lower including more cortical bone which may explain that. I discussed with patient switching to Reclast now vs next year after she is done with anastrozole (switching may cause some decline in BMD specially that she has been on the medicine for >2.5 years, but she only has osteopenia with good T-score now), vs just keeping on Prolia. She preferred to keep on Prolia now and will consider switching next year after she is done with anastrozole. Ordered labs before each Prolia shot and emphasized on importance of making sure she received Prolia every 6 months. Discussed ONJ/AFF. -In terms of calcium intake, I counseled them on goal daily Ca intake; 1200 mg preferably from diet -In terms of vitamin D, level has been good on current supplement, OK if wants to decrease to 1000 units daily in total. -Next DXA scan will be due in 12/2026. -Encouraged weight bearing exercise. Return in about 1 year (around 01/13/2026) for osteoporosis f/u. Time spent reviewing chart, during the encounter, putting orders and coordinating care on the encounter day is 70 minutes. Addison Michelle MD Endocrinology Orders Placed This Encounter Procedures PTH Intact (Processed at [facility]) Standing Status: Future Expiration Date: 01/13/2026 Release to patient: Immediate Calcium Level Standing Status: Future Expiration Date: 01/13/2026 Release to patient: Immediate Albumin Standing Status: Future Expiration Date: 01/13/2026 Release to patient: Immediate Phosphorus Standing Status: Future Expiration Date: 01/13/2026 Release to patient: Immediate Magnesium Level Standing Status: Future Expiration Date: 01/13/2026 Release to patient: Immediate Beta Crosslaps (Beta CTX) Standing Status: Future Expiration Date: 01/13/2026 Release to patient: Immediate Protein Electrophoresis, Blood Standing Status: Future Expiration Date: 01/13/2026 Release to patient: Immediate CARVEOUT: Send to [facility] Immunofixation, Serum Standing Status: Future Expiration Date: 01/13/2026 Release to patient: Immediate CARVEOUT: Send to [facility] Immunoglobulin Free Light Chains,Blood Standing Status: Future Expiration Date: 01/13/2026 Release to patient: Immediate Calcium, Urine, 24 Hour Standing Status: Future Expiration Date: 01/13/2026 Release to patient: Immediate Creatinine, Urine, 24 Hour Standing Status: Future Expiration Date: 01/13/2026 Release to patient: Immediate Sodium, Urine, 24 Hour Standing Status: Future Expiration Date: 01/13/2026 Release to patient: Immediate Vitamin D, Total, 25-OH Standing Status: Future Expiration Date: 01/13/2026 Release to patient: Immediate Creatinine, serum Standing Status: Future Expiration Date: 01/13/2026 Release to patient: Immediate Calcium, ionized Standing Status: Future Expiration Date: 01/13/2026 Release to patient: Immediate Celiac Serology [place] Panel Standing Status: Future Expiration Date: 01/13/2026 Release to patient: Immediate Calcium Level Standing Status: Future Expected Date: 07/12/2025 Expiration Date: 01/13/2026 Release to patient: Immediate Albumin Standing Status: Future Expected Date: 07/12/2025 Expiration Date: 01/13/2026 Release to patient: Immediate Creatinine, serum Standing Status: Future Expected Date: 07/12/2025 Expiration Date: 01/13/2026 Release to patient: Immediate [1] Social History Socioeconomic History Marital status: Tobacco Use Smoking status: Never Smokeless tobacco: Never Vaping Use Vaping status: Never Used Substance and Sexual Activity Alcohol use: Yes Alcohol/week: 1.0 standard drink of alcohol Types: 1 Glasses of wine per week Comment: 1 glass wine month Drug use: No Sexual activity: Not Currently [2] No Known Allergies [3] Current Outpatient Medications Medication Sig Dispense Refill anastrozole (ARIMIDEX) 1 mg tablet Take 1 (one) tablet (1 mg total) by mouth daily . 30 tablet 5 calcium-vitamin D 500 mg-5 mcg (200 unit) per tablet Take 1 (one) tablet by mouth 2 (two) times a day with meals . (Patient taking differently: Take 1 (one) tablet by mouth 3 (three) times a day with meals .) denosumab (PROLIA SUBQ) Inject under the skin . levothyroxine (SYNTHROID, LEVOTHROID) 50 MCG tablet 1 (one) tablet (50 mcg total) once daily . meloxicam (MOBIC) 7.5 MG tablet TAKE 1 TABLET BY MOUTH EVERY DAYS NEEDED 3 CHOLECALCIFEROL, VITAMIN D3, ORAL Take 500 Units by mouth 3 (three) times a day . (Patient not taking: Reported on 01/13/2025 .) No current facility-administered medications for this visit. AUTHENTICATED BY ADDISON MICHELLE, ON 01/13/2025 15:11:30 ECHOCARDIOGRAM COMPLETE W CONTRAST Observed: 01/08/2025 7:43 AM Status: F Source: [facility] Patient Info Name: JENNI JOHNSON Age: 80 years : 1945 Gender: Female Ht: 160 cm Wt: 54 kg BSA: 1.56 m2 HR: 91 bpm BP: 130 / 66 mmHg Heart Rhythm: Sinus Rhythm Technical Quality: Technically difficult Exam Date: 2025 2:57 PM Patient Status: Outpatient Quality Associate: Sharon Huffman RN, [facility] Exam Type: ECHOCARDIOGRAM COMPLETE W CONTRAST Study Info Indications Z51.11 - Encounter for antineoplastic chemotherapy Referring Physician: IESHA CHISHOLM ; [id number] BMI: 21.26 kg/m2 Summary 1. This study was technically limited, Definity IV contrast was used to enhance endocardial definition. 2. Left ventricular systolic function is normal with an ejection fraction by Biplane Method of Discs of 72 %. 3. Right ventricular size and systolic function are normal. 4. The left ventricular diastolic function is normal. 5. No significant valvular disease identified. History/Risk Factors Tobacco Use: Never Family History: Coronary Artery Disease History/Risk Factors Breast cancer. Procedure(s): Complete two-dimensional, color flow and Doppler transthoracic echocardiogram is performed with contrast. Definity explained to patient. Patient verbalizes understanding and agrees to proceed. Definity 1.3ml/8.7ml normal sterile saline 3 ml total given IV over 30-60 seconds. Left Ventricle Left ventricular chamber dimension is normal. Left ventricular systolic function is normal with an ejection fraction by Biplane Method of Discs of 72 %. Normal left ventricular mass. Left ventricular segmental wall motion is normal. The left ventricular diastolic function is normal. Right Ventricle Right ventricular size and systolic function are normal. Left Atria Left atrial chamber is normal with a left atrial volume index of 19 ml/m2 by BP MOD. Right Atria Right atrial chamber dimension is normal. Aortic Valve The aortic valve is trileaflet. There is no aortic valve sclerosis. There is no aortic valve stenosis. There is no aortic valve regurgitation. Pulmonic Valve The pulmonic valve is normal. There is no pulmonic valve stenosis. There is trace pulmonic regurgitation. Mitral Valve The mitral valve has normal leaflets. There is no mitral valve stenosis. There is trace mitral valve regurgitation. Tricuspid Valve The tricuspid valve leaflets are normal. There is no significant tricuspid valve stenosis. There is trace tricuspid valve regurgitation. There is no pulmonary hypertension, estimated right ventricle systolic pressure is 23 mmHg. Pericardium/Pleural There is no pericardial effusion. Inferior Vena Cava Normal inferior vena cava with >50% collapse upon inspiration consistent with normal right atrial pressure. Aorta The aortic measurements are indexed to age and body surface area. The aortic root is normal measuring 2.9 cm with an index of 1.8 cm/m2. The proximal ascending aorta is normal measuring 2.7 cm with an index of 1.7 cm/m2. Wall Motion Scoring Wall Motion Scoring Index: 1.00 Left Ventricular Outflow Tract Name Value Normal LVOT 2D LVOT Diameter 2.0 cm LVOT Doppler LVOT Peak Velocity 1.1 m/s LVOT Peak Gradient 5 mmHg LVOT Mean Gradient 3 mmHg LVOT VTI 21 cm LVOT VTI/AV VTI Ratio 1.1 LVOT Stroke Volume 65 ml LVOT Stroke Index 41.91 ml/m2 Pulmonic Valve Name Value Normal PV 2D RVOT Diameter (2D) 2.3 cm 1.7-2.7 RVOT Doppler RVOT Peak Velocity 81 cm/s RVOT Peak Gradient 3 mmHg RVOT Mean Gradient 1 mmHg RVOT VTI 14 cm PV Doppler PV Peak Velocity 1.04 m/s PV Peak Gradient 4 mmHg PV Mean Gradient 2 mmHg PV VTI 18 cm PV Area (Cont Eq VTI) 3.5 cm2 PV Area Index (Cont Eq VTI) 2.22 cm2/m2 PV Area (Cont Eq Tomás) 3.3 cm2 PV Area Index (Cont Eq Tomás) 2.15 cm2/m2 Mitral Valve Name Value Normal MV Doppler MV Peak Velocity 0.94 m/s MV Peak Gradient 4 mmHg MV Mean Gradient 1 mmHg MV VTI 20 cm MV Decel [place] 399 cm/s2 MV PHT 69 ms MV Area (PHT) 3.2 cm2 4.0-5.0 MV Area (Cont Eq VTI) 3.2 cm2 MV Area Index (Cont Eq VTI) 2.07 cm2/m2 MV DVI 0.95 MV Diastolic Function MV E Peak Velocity 0.64 m/s MV A Peak Velocity 0.72 m/s MV E/A 0.9 MV Decel Time 159 ms MV Annular TDI MV Septal e' Velocity 7.4 cm/s >=8.0 MV E/e' (Septal) 8.0 <=8.0 MV Lateral e' Velocity 10.2 cm/s >=9.5 MV E/e' (Lateral) 6.5 <=8.0 MV e' Average 8.79 cm/s MV E/e' (Average) 7.2 <=13.5 Tricuspid Valve Name Value Normal TV Regurgitation Doppler TR Peak Velocity 2.25 m/s <=2.80 TR Peak Gradient 20 mmHg Estimated PAP/RSVP RA Pressure 3 mmHg <=5 PA Systolic Pressure 23 mmHg <=36 RV Systolic Pressure 23 mmHg <36 TV Annular TDI RV s' Velocity 0.1 m/s 0.1-0.2 Aorta Name Value Normal Ascending Aorta Ao Root Diameter (2D) 2.9 cm 2.7-3.3 Ao Root Diam Index (2D) 1.8 cm/m2 1.6-2.0 Prox Asc Ao Diameter 2.7 cm 2.3-3.1 Prox Asc Ao Diameter Index 1.7 cm/m2 1.3-1.9 Venous Name Value Normal IVC/SVC IVC Diameter (Exp 2D) 1.4 cm <=2.1 Aortic Valve Name Value Normal AV Doppler AV Peak Velocity 1.1 m/s AV Peak Gradient 5 mmHg AV Mean Gradient 2 mmHg AV VTI 19 cm AV Area (Cont Eq VTI) 3.4 cm2 AV Area Index (Cont Eq VTI) 2 cm2/m2 AV Area (Cont Eq Tomás) 3.1 cm2 AV Area Index (Cont Eq Tomás) 2 cm2/m2 LVOT Vmax/AV Vmax 1.02 LVOT VTI/AV VTI Ratio 1.1 AV Regurgitation 2D LVOT Area 3.1 cm2 Ventricles Name Value Normal LV Dimensions 2D/MM IVS Diastolic Thickness (2D) 0.9 cm 0.6-0.9 LVID Diastole (2D) 3.5 cm 3.8-5.2 LVIW Diastolic Thickness (2D) 0.9 cm 0.6-0.9 LVID Systole (2D) 2.1 cm 2.2-3.5 LVOT Diameter 2.0 cm LV Mass (2D Cubed) 90.25 g 67.00-162.00 LV Mass Index (2D Cubed) 58 g/m2 43-95 Relative Wall Thickness (2D) 0.54 <=0.42 LV Fractional Shortening/Ejection Fraction 2D/MM LV Fractional Shortening (2D) 40 % 27-45 LV EF (2D Teicholz) 72 % 54-74 LV Diastolic Volume (4C MOD) 65 ml LV Systolic Volume (4C MOD) 18 ml LV EF (4C MOD) 73 % LV Diastolic Volume (2C MOD) 51 ml LV Systolic Volume (2C MOD) 14 ml LV EF (2C MOD) 72 % LV Diastolic Volume (BP MOD) 59 ml 46-106 LV Diastolic Volume Index (BP MOD) 38 ml/m2 29-61 LV Systolic Volume (BP MOD) 17 ml 14-42 LV Systolic Volume Index (BP MOD) 11 ml/m2 8-24 LV EF (BP MOD) 72 % 54-74 LV Diastolic Length (4C) 6.3 cm LV Systolic Length (4C) 4.6 cm LV Stroke Volume (4C MOD) 47 ml LV SI (4C MOD) 30.29 ml/m2 LV CO (BP MOD) 0.0 l/min LV CI (BP MOD) 0.0 l/min/m2 RV Dimensions 2D/MM RV Basal Diastolic Dimension 2.9 cm 2.5-4.1 TAPSE 1.9 cm >=1.7 RV Systolic Function RV s' Velocity 0.13 m/s 0.10-0.19 Diastology TR Peak Velocity 2.25 m/s <=2.80 MV Septal e' Velocity 7.4 cm/s >=8.0 LA Volume Index (BP A-L) 21 ml/m2 <=34 LA Volume Index (2C MOD) 19 ml/m2 LA Volume Index (4C MOD) 19 ml/m2 LA Volume Index (BP MOD) 19 ml/m2 16-34 MV Lateral e' Velocity 10.2 cm/s >=9.5 MV E/e' (Average) 7.2 <=13.5 MV E/A 0.9 MV E/e' (Lateral) 6.5 <=8.0 MV E/e' (Septal) 8.0 <=8.0 MV e' Average 8.79 cm/s Atria Name Value Normal LA Dimensions LA Area (4C) 12.9 cm2 LA Length (4C) 4.3 cm LA Area (2C) 12.6 cm2 LA Length (2C) 4.3 cm LA Volume (4C MOD) 30 ml LA Volume (2C MOD) 29 ml LA Volume (4C A-L) 32 ml LA Volume (2C A-L) 31 ml LA Volume (BP A-L) 32 ml LA Volume Index (BP A-L) 21 ml/m2 <=34 LA Volume (BP MOD) 30 ml LA Volume Index (BP MOD) 19 ml/m2 16-34 RA Dimensions RA Systolic Major [place] Length (4C) 3.67 cm <=5.30 RA Area (4C) 10.0 cm2 <=18.0 RA Area (4C) Index 6 cm2/m2 RA ESV (4C MOD) 22 ml 15-27 RA ESV Index (4C MOD) 14 ml/m2 <=27 Report Signatures Finalized by Aixa Dailey MD on 01/08/2025 07:43 AM XR BONE DENSITY DEXA AXIAL Observed: 1:16 PM Status: F Source: [facility] Order Comment: Injury/Trauma or Illness?:Illness/Other How long have you had these symptoms (acute/chronic)?:Unknown Reason for exam?:osteoporosis Type of Exam?:Unknown Additional signs and symptoms?:hx breast ca EXAMINATION: XR BONE DENSITY DEXA AXIAL 12/28/2024 HISTORY: ORDERING SYSTEM PROVIDED HISTORY: osteopenia, TECHNOLOGIST PROVIDED HISTORY: Illness/Other Reason for exam: osteoporosis Encounter Type: Unknown Additional signs and symptoms: hx breast ca ORDERING SYSTEM PROVIDED DIAGNOSIS CODES: Z78.0 Asymptomatic menopause Risk Factors: Postmenopausal; currently being treated for osteoporosis; height loss; lack of regular weight bearing exercise COMPARISON: DEXA scan 12/25/2022 TECHNIQUE: Bone mineral density measurements were acquired at the lumbar spine and left hip. Instrument: The examination was done at [facility]. Thumbs Up; serial number: [id number]. FINDINGS: BONE MINERAL DENSITY DETERMINATION: Femoral Neck * Density (g/cm2): 0.706 * T Score: -1.3 * Prior BMD (g/cm2): 0.674 * % Change: N/A% * Statistically Significant: N/A Total Hip * Density (g/cm2): 0.893 * T Score: -0.4 * Prior BMD (g/cm2): 0.953 * % Change: -6.3% * Statistically Significant: Yes Spine (L1-L4) * Density (g/cm2): 1.018 * T Score: -0.3 * Prior BMD (g/cm2): 0.965 * % Change: 5.6% * Statistically Significant: Yes Forearm * Density (g/cm2): N/A * T Score: N/A * Prior BMD (g/cm2): N/A * % Change: N/A% * Statistically Significant: N/A The average bone mineral density (g/cm2) was measured. Final categorization is based on the lowest T-score of the above, as recommended by the International Society of Clinical Densitometry. FRAX Score: FRAX not reported because: The patient is being treated for osteoporosis NOTES: 1. This facility has been validated using the recommendations of the International Society of Clinical Densitometry (ISCD). This validation insures accurate results. In order to be certain that your patient's results are accurate, you should refer them only to facilities that have been validated in this manner. Not all facilities have gone through this rigorous validation. 2. In order to compare results through the years, it is necessary that the patient be scanned on the same instrument each time, or on instruments that have been cross-correlated. If this is not done, then difference may be due to differences in the machines, rather than to changes in the patient's bone density. IMPRESSION: Osteopenia. PHARMACOLOGIC TREATMENT RECOMMENDATIONS: 1. No uniform recommendation applies to all patients. Management plans must be individualized 2. Consider initiating pharmacologic treatment for postmenopausal women and men greater than or equal to 50 years of age who have the following: Primary fracture prevention: *T-score is less than or equal to -2.5 at the femoral neck, total hip, lumbar spine, 33% radius (some uncertainty with existing data) by DEXA. *Low bone mass (osteopenia: T-score between -1.0 and -2.5) at the femoral neck or total hip by DEXA with a 10 year hip fracture risk greater than or equal to 3% or a 10-year major osteoporosis-related fracture risk greater than or equal to 20% (i.e. clinical vertebral, hip, forearm, or proximal humerus) based on the [place]- adapted FRAX model. Secondary fracture prevention: *Fracture of the hip or vertebra regardless of BMD. *Fracture of the proximal humerus, pelvis, or distal forearm in persons with low bone mass (osteopenia: T-score between at -1.0 and -2.5). The decision to treat should be individualized in persons with a fracture of the proximal humerus, pelvis, or distal forearm who do not have osteopenia or low BMD. Bridget MS, Dayanna SL, Rachana KL, Estefanía EM, Helen KG, AJ, Liz ES. The clinician's guide to prevention and treatment of osteoporosis. Osteoporosis Int. 2021;33(10):0030-1997. doi: 10.1007/z48484-994-97249-r. Epub 2021Dec 07. Erratum in: Osteoporosis Int. 2021Mar 08;: PMID: [id number]; PMCID: [id number]. Workstation ID: [id number] Dictated by: MONSERRAT TA on SatDecember 29, 2024 12:39:12 PM EDT Transcribed by: MONSERRAT TA on SatDecember 29, 2024 12:39:12 PM EDT Finalized by: ADRIENNE NAGY on SatDecember 29, 2024 5:05:01 PM EDT PROGRESS Observed: 11/30/2024 9:17 AM Status: COMPLETED Source: [facility] Breast Cancer Survivorship C linic Visit Patient Name: Jenni Johnson MR #: [id number] : 1945 Reason for visit: Breast cancer survivorship visit, symptom management, and surveillance Diagnosis: Left breast DCIS pTis Nx Mx, Stage 0 Date of Diagnosis:12/09/20 Primary Care Provider: Phylicia Singh Chi, MD Surgeon: Vince Jo MD Medical Oncologist: Jennifer Lee MD Radiation Oncologist: Frandy Stein MD AJCC stage: pTis Nx Mx, Stage 0 Date of diagnosis: 12/09/20 Goal of treatment: curative Reason for visit: L breast DCIS, ER positive Treatment History: Needle localization and excision of left medial highly-suspicious micro-calcifications probable ductal carcinoma in situ. Adjuvant radiation completed on 01/20/2021 Adjuvant endocrine therapy with Arimidex which was started in February 2021. We will continue for 5 years, through February 2026. Survivorship Assessment and Recommendations Assessment: Jenin is a 79 y.o. female who presented for her initial evaluation in the Survivorship Clinic for diagnosis of breast Cancer.She has some concerns about her bone health. No recent hospitalization or new medications. No breast lumps or axillary lymphadenopathy. She is active, and walks daily. We discussed way to increased weight based exercise,and she is interested in the Cancer Wellness Program Recommendations: Left breast DCIS: The patient has a complex breast history as outlined above. She has a history of fibrocystic breast issues and dense tissue. 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 Her screening mammogram from June 2020 noted calcifications in the left breast. A biopsy was attempted however they were unable to complete it at that time. She elected to proceed with monitoring and she had a repeat mammogram of the left breast in November 2020 which noted an increase in the microcalcifications. -Given this she proceeded with a stereotactic guided biopsy of the left breast on 12/09/[address] Detrich and pathology noted left breast ductal carcinoma in situ, grade 2-3. The tumor was ER positive at 20% and OH negative. -Following her resection, she proceeded with adjuvant radiation which she completed on 01/20/2021. -Her DCIS was positive for the estrogen receptor so I recommended adjuvant endocrine therapy with Arimidex which was started in February 2021. She has tolerated this well without any significant arthralgias or hot flashes. She is compliant with the medication. -We will continue for 5 years, through February 2026. -She had a bilateral screening mammogram on 07/13/24 which was normal. She is next due on 07/14/2024. Ordered at last visit. - RTC in 1 year for Survivorship visit Osteopenia per patient history. Her last DEXA was 01/05/21 at [place] which showed osteopenia but showed improvement from the prior DEXA. - She is taking supplemental calcium and vitamin D. She was started on Prolia in June,. - Repeat DEXA scan 12/25/22 with osteopenia. This is stable from her previous DEXA. Last prolia in July,. - The patient expressed concerned about length of treatment with Prolia. As patient is on endocrine therapy with increased risk for osteopenia, and her Dexa scan has not improved, but remained stable; I would recommend treatment with Prolia until her endocrine therapy is completed. For patients at low risk for fracture in the near future (eg, stable bone mineral density, no previous vertebral or hip fractures), we suggest discontinuing the drug (after three years for zoledronic acid, five years for alendronate or risedronate), as there appears to be residual BMD and fracture benefit. (UpToDate 12/09/23) -She is taking supplemental calcium and vitamin D. - Repeat Bone Density ordered for 12/15/24 - Will refer to endocrinology for management of bone density. Genetics: Jenni has not previously completed genetic counseling/testing. Based on her personal and family history of breast cancer genetic counseling/testing is recommended for her. 11/30/24 A referral was placed today for genetic counseling. Principles of Survivorship: - Recommend Prevnar 20 vaccination - Will order echocardiogram given her history of left sided radiation therapy - Referral to Cancer Wellness Program Surveillance Surveillance History of Present Illness: Jenni is a 79 y.o. female who presents for initial evaluation in the Survivorship Clinic for diagnosis of breast cancer. She has past medical history of breast cancer, hypothyroidism, arthritis, postoperative nausea and vomiting. She has a history of dense breast and severe fibrocystic disease. 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 She also notes a family history of a sister who from metastatic breast cancer. She was following routinely with mammograms. She had a bilateral screening mammogram on 06/23/2020 which noted left-sided microcalcifications which were new. She denied any masses on self-exam or any nipple discharge or skin changes. She had a diagnostic mammogram following this which noted microcalcifications in the inferior medial tissues of the left breast which appear pleomorphic. These were suspicious appearing. A biopsy was recommended however this was attempted and discontinued as the calcifications were not amenable to prone stereotactic guided biopsy. They discussed the option of proceeding with a lumpectomy versus repeat mammogram after 4-6 months and she elected to proceed with having a repeat mammogram. She had a mammogram on 11/10/2020 which noted pleomorphic calcifications which appeared increased compared to June 2020. She saw Dr. Medina in follow-up and they discussedconsidering a biopsy and comments versus needle localization excisionalbiopsy in [place] and she elected to proceed with the latter. She had this on 12/09/2020. 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 The margins were uninvolved. It also noted fibrocystic changes with associated microcalcifications. The tumor was ER positive at 20% and OH negative. She tolerated the surgery well. She followed up with Dr. Jo and was referred to radiation oncology as well as medical oncology for further discussion regarding her left breast DCIS. She was seen by radiation oncology on 12/28/2020. He discussed hypofractionated radiation, very hyperfractionated radiation as well as: Partial breast irradiation. He recommended radiation and she agreed to proceed with his plan. Adjuvant radiation completed on 01/20/2021. Reproductive risk factors: Age of menarche at 13 years Age of menopause at 51 years. 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 control pills: yes. Hormone replacement therapy: no. History of prior breast biopsy yes History of prior breast cancer no Family History : Breast cancer yes her maternal aunt had a disease and from metastatic disease with the patient under the impression her mother probably had breast cancer at the age of 92 but was never formally diagnosed, Ovarian Cancer no , Endometrial cancer no Colorectal cancer no Pancreatic cancer not applicable Past Medical History: Diagnosis Date Arthritis Breast cancer (HCC) 12/09/2020 left breast pTis Nx Mx, Stage 0 Complication of anesthesia slow to wake Hypothyroidism PONV (postoperative nausea and vomiting) Past Surgical History: Procedure Laterality Date BREAST BIOPSY Right 08/12/1989 benign, recurrent phyllodes tumor BREAST BIOPSY Left 01/23/2000 fibrocystic change and ductal epithelial hyperplasia without atypia BREAST EXCISIONAL BIOPSY Left 01/23/2000 fibrocystic changes BREAST LUMPECTOMY BREAST MASS W/ NEEDLE LOC Left 12/09/2020 Procedure: EXCISION MASS BREAST WITH NEEDLE LOCALIZATION; Surgeon: Vince Jo MD; Location: [facility] OR; Service: General Surgery CATARACT EXTRACTION, BILATERAL Bilateral left 01/22/18, right 01/08/18 COLONOSCOPY N/A 05/30/2021 Procedure: COLONOSCOPY WITH PEDIATRAC SCOPE; Surgeon: Vince Jo MD; [place] [facility]; Service: General 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 Review of Systems General- Denies weakness, fever/chills, weight gain/loss, fatigue, change in appetite, or cold and flu symptoms HEENT: Denies hearing changes or tinnitus, vision changes, sinus pain/tenderness, nasal congestion, epistaxis, gingival bleed, sore throat, or mouth sores Cardiac; Denies CP, palpitations, dizziness, claudication, or CAPPS Pulmonary- Denies SOB, wheezing, PND, or cough GI- Denies nausea and vomiting, dysphagia, heartburn, abdominal pain, diarrhea or constipation - Denies urgency, frequency, hematuria or incontinence, complains of burning when urinating Endo- Denies excessive sweating, polyuria, or polydypsia MS - Denies joint stiffness swelling, or decreased ROM, Neuro- Denies loss of consciousness, numbness or tingling Skin- Denies jaundice, rashes, or open lesions Heme- Denies night sweats, signs and symptoms of infection, easily bleeding or bruising Psych- Denies signs and symptoms of depression or suicidal thoughts Physical Exam PACU Vitals 11/30/24 0906 BP: (!) 148/82 Pulse: (!) 103 Temp: 97.9 degrees F (36.6 degrees C) SpO2: 97% PainSc: 0-No pain General Appearance: Alert, well developed, and in no acute distress. HEENT: Head - Normocephalic, atraumatic. No temporal wasting . Eyes - SHASTA bilaterally and EOMI, anicteric sclerae. Ears - normal external appearance, hearing intact. Nose - normal, no erythema. Throat - mucous membranes moist, pharynx without lesions. Neck: Supple, trachea midline. Cardiovascular: S1, S2 normal. No murmurs, rubs, clicks or gallops appreciated. No pedal edema. Respiratory: Lungs clear to auscultation, no wheezes, rales or rhonchi heard. Lymphatics: No palpable peripheral lymphadenopathy Abdomen: Soft, non-tender, normal bowel sounds, non-distended, no hepatosplenomegaly Neurological: Grossly normal motor and sensory exam. No focal deficits. Musculoskeletal: No joint tenderness, deformity. Skin: Normal coloration and turgor. No rashes. Psych: Alert, oriented x 3. Normal mood and affect. Breast: Left breast status post lumpectomy with well healed incision. No erythema or drainage. No palpable masses, skin changes, nipple discharge in the left breast. No axillary adenopathy bilaterally. Right breast without any masses, skin changes, nipple discharge Labs: reviewed in EMR Radiology: Screening mammogram 07/13/2024 Scar marker along the inferior middle depth of the left breast with adjacent skin thickening presumably posttreatment changes. Similar dystrophic calcification along the posterior depth of the right breast. Neither breast demonstrates suspicious grouped calcifications, developing mass or interval distortion. IMPRESSION:Stable postsurgical and posttreatment changes of the left breast. No mammographic evidence of malignancy. BIRADS - CATEGORY 2 Benign, no evidence of malignancy. Normal interval follow-up is recommended in 12 months. OVERALL ASSESSMENT - BENIGN DEXA Scan 12/25/22 Osteopenia with T-score of -1.7 of right radius. Final Diagnosis 12/09/2020 SYNOPTIC REPORT: DUCTAL CARCINOMA IN-SITU OF THE BREAST Histologic type: Ductal carcinoma in situ Nuclear grade: Grade II-III (intermediate to high) Margins: Uninvolved by DCIS Distance from closest margin(s): Medial, 2.2 mm Pathologic Stage (AJCC 8th Ed.): pTis (DCIS) pNX Procedure: Excision with image guidance Specimen laterality: Left Tumor site: Lower medial Size (Extent) of DCIS: At least 5 mm, involving 3 of 14 blocks Architectural pattern(s): Comedo, Solid Necrosis: Present, central (expansive comedo necrosis) Regional lymph nodes: No lymph nodes submitted or found Additional pathologic findings: Fibrocystic change with associated microcalcifications. Ancillary studies: ER: PENDING A. Breast, Left, medial, needle localized excision: Ductal carcinoma in-situ, nuclear grade 2-3. See synoptic report. B. Breast, Left, superficial superior and medial, re-excision: Negative for malignancy. Addendum Ancillary studies: ER: Positive ( 20%, 1+ intensity, resulted by image analysis) OH: Negative (0%) All controls show appropriate reactivity. Monitoring for Early and Late Effects of Treatment Monitoring for late effects Assess for Cardiac Risk - Left sided radiation yes - History of cardiovascular disease no -Hypertension no -Hyperlipidemia no -Diabetes no -Tobacco use no Assess for cognitive dysfunction - Patient denies problems with memory other than age related memory loss. Fatigue assessment - Denies significant fatigue Bone Health: Bone density on 12/25/22 with finding of osteopenia. She is on Prolia. Recommend baseline DEXA at age 60. Healthy diet inclusive of adequate vitamin D and calcium (or daily supplements), as well as weightbearing activity to maintain healthy bones. Risk Reduction Risk Reduction and Counseling Lifestyle Risk assessment Height: 5' 3 Weight: 54.5 kg (120 lb 1.6 oz) BMI Body mass index is 21.27 kg/m . Nutrition: The labor relations analyst will call the patient regarding dietary recommendations for bone health. Endocrine therapy: Her DCIS was positive for the estrogen receptor so I recommended adjuvant endocrine therapy with Arimidex which was started in February 2021. She has tolerated this well without any significant arthralgias or hot flashes. She is compliant with the medication. We will continue for 5 years, through February 2026. Genetics: Jenni has not previously completed genetic counseling/testing. Based on her personal and family history of breast cancer genetic counseling/testing is recommended for her. 11/30/24 A referral was placed today for genetic counseling. Exercise: Encouraged patient to continue to engage in dedicated and routine exercise. Evidence supports that exercising 150 minutes/week can decrease the risk of recurrent breast disease and reduce the risk of dying prematurely from other diseases. We discussed the cancer wellness program, and she is interested. 11/30/24 Referral placed Tobacco/Alcohol: Exam Last Date Completed Next Due Date Survivorship Clinic 11/30/2411/2025 Medical oncology visit 12/09/23 as needed Surgical oncology visit 07/15/2407/2025 Gynecology exam years ago patient over age 65 Mammogram 07/13/24 07/13/2025 Bone density 12/25/22 12/25/2024 Colonoscopy 05/2021 only as needed d/t age Skin cancer screening summer PAP years ago annually Vaccines Influenza 05/20/24 annually Pneumococcal PPSV 23 10/05/2013 Pneumococcal Prevnar 13 01/04/2011 recommend prevnar 20 Shingles 06/09/24 N/A Covid 06/02/24 as recommended RSV 06/09/2024 N/A Surveillance 1. Reviewed importance of monthly self-breast awareness exam. Reviewed signs and symptoms that should be reported to her breast health provider, including: a new lump in the breast a new area of the breast that seems unnaturally firm redness or swelling of the skin in or around the breast area flattening or other changes to the nipple bumps on or under the skin of the chest wall new pulling of skin or swelling at the lumpectomy site a new thickening on or near the mastectomy scar bone pain, chest pain, shortness of breath, abdominal pain, or persistent headaches. 2. No evidence of recurrence or metastatic disease on exam today. Psychosocial Functioning Distress Screening; She noted distress scale screening of 1 out of 10, indicating concern regarding the state of our democracy and wellbeing of our citizens. She is also concerned about her bone health. Anxiety/Fear of recurrence: Patient declined to meet with licensed master social worker. A total of 60 minutes were spent [id number] with the patient during this encounter with greater than 50% spent on counseling and coordination of care.This includes chart review, patient assessment and review of HPI, collaboration with ancillary team members (social work and labor relations analyst if applicable). We discussed in depth her diagnosis, surveillance for risk of cancer recurrence or new cancer as well as recommended screenings and healthy lifestyle for risk reduction and wellness. Iesha Chisholm, ACNP-BC [1] Current Outpatient Medications: anastrozole (ARIMIDEX) 1 mg tablet, Take 1 (one) tablet (1 mg total) by mouth daily ., Disp: 30 tablet, Rfl: 5 calcium-vitamin D 500 mg-5 mcg (200 unit) per tablet, Take 1 (one) tablet by mouth 2 (two) times a day with meals ., Disp: , Rfl: CHOLECALCIFEROL, VITAMIN D3, ORAL, Take 500 Units by mouth 3 (three) times a day ., Disp: , Rfl: levothyroxine (SYNTHROID, LEVOTHROID) 50 MCG tablet, 1 (one) tablet (50 mcg total) once daily ., Disp: , Rfl: meloxicam (MOBIC) 7.5 MG tablet, TAKE 1 TABLET BY MOUTH EVERY DAYS NEEDED, Disp: , Rfl: 3 AUTHENTICATED BY IESHA CHISHOLM, ON 12/01/2024 18:44:04 PROGRESS Observed: 07/15/2024 12:12 PM Status: COMPLETED Source: [facility] AMBULATORY BREAST CONSULT HISTORY & PHYSICAL EXAMINATION Patient Name: Jenni Johnson MR #: [id number] : 1945 Physicians: Phylicia Singh Chi, MD (Family); No ref. provider found (Referring) Chief Complaint/Reason for Visit: Chief Complaint Patient presents with Follow-up Breast Problem 1. History of ductal carcinoma in situ (DCIS) of breast 2. Encounter for follow-up surveillance of ductal carcinoma in situ (DCIS) of breast History of Present Illness: Patient is 79-year-old white female who was last seen and evaluated July 17, 2023. She has previously undergone a guidewire localized excision of a left sided DCIS December 09, 2020. She denies any breast masses or breast symptomatology. She has no nipple discharge. Her final path report is as follows: Ancillary studies: ER: Positive ( 20%, 1+ intensity, resulted by image analysis) OH: Negative (0%) All controls show appropriate reactivity. The Professional Component of immunohistochemistry and/or in-situ hybridization was completed at [facility], [address] [place] [address]. CPT codes: 66197 x 2 Addendum electronically signed by Roge Layton MD on 12/14/2020 at 1602 Final Diagnosis SYNOPTIC REPORT: DUCTAL CARCINOMA IN-SITU OF THE BREAST Histologic type: Ductal carcinoma in situ Nuclear grade: Grade II-III (intermediate to high) Margins: Uninvolved by DCIS Distance from closest margin(s): Medial, 2.2 mm Pathologic Stage (AJCC 8th Ed.): pTis (DCIS) pNX Procedure: Excision with image guidance Specimen laterality: Left Tumor site: Lower medial Size (Extent) of DCIS: At least 5 mm, involving 3 of 14 blocks Architectural pattern(s): Comedo, Solid Necrosis: Present, central (expansive comedo necrosis) Regional lymph nodes: No lymph nodes submitted or found Additional pathologic findings: Fibrocystic change with associated microcalcifications. Ancillary studies: ER: PENDING A. Breast, Left, medial, needle localized excision: Ductal carcinoma in-situ, nuclear grade 2-3. See synoptic report. B. Breast, Left, superficial superior and medial, re-excision: Negative for malignancy. Amendment electronically signed by Roge Layton MD on 12/19/2020 at 0905 Addendum Ancillary studies: ER: Positive ( 20%, 1+ intensity, resulted by image analysis) OH: Negative (0%) All controls show appropriate reactivity. The Professional Component of immunohistochemistry and/or in-situ hybridization was completed at [facility], [address] [place] [address]. CPT codes: 60686 x 2 Addendum electronically signed by Roge Layton MD on 12/14/2020 at 1602 Final Diagnosis SYNOPTIC REPORT: DUCTAL CARCINOMA IN-SITU OF THE BREAST Histologic type: Ductal carcinoma in situ Nuclear grade: Grade II-III (intermediate to high) Margins: Uninvolved by DCIS Distance from closest margin(s): Medial, 2.2 mm Pathologic Stage (AJCC 8th Ed.): pTis (DCIS) pNX Procedure: Excision with image guidance Specimen laterality: Left Tumor site: Lower medial Size (Extent) of DCIS: At least 5 mm, involving 3 of 14 blocks Architectural pattern(s): Comedo, Solid Necrosis: Present, central (expansive comedo necrosis) Regional lymph nodes: No lymph nodes submitted or found Additional pathologic findings: Fibrocystic change with associated microcalcifications. Ancillary studies: ER: PENDING A. Breast, Left, medial, needle localized excision: Ductal carcinoma in-situ, nuclear grade 2-3. See synoptic report. B. Breast, Left, superficial superior and medial, re-excision: Negative for malignancy. Amendment electronically signed by Roge Layton MD on 12/19/2020 at 0905 at 1355 On July 13, 2024 she underwent her most recent bilateral screening mammograms. I personally independently reviewed those images as well as the official radiologic interpretation which is as follows: EXAMINATION: MM SCREENING PHOBEE BILATERAL HISTORY: ORDERING SYSTEM PROVIDED HISTORY: annual screening, TECHNOLOGIST PROVIDED HISTORY: ORDERING SYSTEM PROVIDED DIAGNOSIS CODES: D05.12 Ductal carcinoma in situ (DCIS) of left breast with comedonecrosis COMPARISON: Mammograms dating back to 06/22/2019. TECHNIQUE: Bilateral 2D and 3D mammographic views. Computer-aided detection was utilized in the interpretation of this exam. FINDINGS: The breasts are heterogeneously dense, which may obscure small masses. Stable left breast lumpectomy postoperative changes. Parenchymal asymmetries are stable. No developing asymmetry, dominant mass or suspicious microcalcifications. There are no suspicious findings. IMPRESSION: No mammographic evidence for malignancy. BIRADS - CATEGORY 2 Benign, no evidence of malignancy. Normal interval follow-up is recommended in 12 months. OVERALL ASSESSMENT - BENIGN Breast Cancer Risk Assessment: Risk Factors: Age of menarche at 13 years Age of menopause at 51 years. 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 control pills: yes. Hormone replacement therapy: no. History of prior breast biopsy yes History of prior breast cancer no Family History : Breast cancer yes her maternal aunt had a disease and from metastatic disease with the patient under the impression her mother probably had breast cancer at the age of 92 but was never formally diagnosed, Ovarian Cancer no , Endometrial cancer no Colorectal cancer no Pancreatic cancer not applicable Past Histories: Allergies: Patient has no known allergies. Patient's Medications New Prescriptions No medications on file Previous Medications ANASTROZOLE (ARIMIDEX) 1 MG TABLET Take 1 (one) tablet (1 mg total) by mouth daily . CALCIUM-VITAMIN D 500 MG-5 MCG (200 UNIT) PER TABLET Take 1 (one) tablet by mouth 2 (two) times a day with meals . CHOLECALCIFEROL, VITAMIN D3, ORAL Take 500 Units by mouth 3 (three) times a day . LEVOTHYROXINE (SYNTHROID, LEVOTHROID) 50 MCG TABLET 1 (one) tablet (50 mcg total) once daily . MELOXICAM (MOBIC) 7.5 MG TABLET TAKE 1 TABLET BY MOUTH EVERY DAYS NEEDED Modified Medications No medications on file Discontinued Medications No medications on file Patient Active Problem List Diagnosis Benign phyllodes tumor of breast Family history of breast cancer Abnormality of left breast on screening mammogram Breast microcalcifications Benign phyllodes tumor of right breast Hypothyroidism Arthritis Pre-op examination Postop check Encounter for follow-up surveillance of ductal carcinoma in situ (DCIS) of breast Ductal carcinoma in situ (DCIS) of left breast with comedonecrosis Osteopenia 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 History of ductal carcinoma in situ (DCIS) of breast Past Medical History: Diagnosis Date Arthritis Breast cancer (HCC) 12/09/2020 left breast pTis Nx Mx, Stage 0 Complication of anesthesia slow to wake Hypothyroidism PONV (postoperative nausea and vomiting) Past Surgical History: Procedure Laterality Date BREAST BIOPSY Right 08/12/1989 benign, recurrent phyllodes tumor BREAST BIOPSY Left 01/23/2000 fibrocystic change and ductal epithelial hyperplasia without atypia BREAST EXCISIONAL BIOPSY Left 01/23/2000 fibrocystic changes BREAST LUMPECTOMY BREAST MASS W/ NEEDLE LOC Left 12/09/2020 Procedure: EXCISION MASS BREAST WITH NEEDLE LOCALIZATION; Surgeon: Vince Jo MD; Location: Main OR; Service: General Surgery CATARACT EXTRACTION, BILATERAL Bilateral left 01/22/18, right 01/08/18 COLONOSCOPY N/A 05/30/2021 Procedure: COLONOSCOPY WITH PEDIATRAC SCOPE; Surgeon: Vince Jo MD; [place] [facility] [place] Service: General Surgery 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 See scanned patient ROS questionnaire for specific details The following systems were reviewed: [x] Const (fevers, chills, wt. loss, fatigue) [x] CV (HTN, CP, CAPPS, edema, DVT) [x] Resp (SOB, pleurisy, asthma, apnea) [x] GI (N, V, D, C, M, abd pain, appetite) [x] Musc (back pain, joint stiffness, gout) [x] Neuro (seizures, syncope, paralysis) [x] Psych (depression, anxiety) [x] Endo (hot/cold intol, polyuria[DM]) [x] Hem/Lymph (Anemia, LA, bleeding) [x] Allerg/Immun (seasonal, immuniz) [x] Eyes (diplopia, cataracts) [x] ENT/mouth (dysphagia, epistaxis) [x] (dysuria, hematuria) [x] Skin/Breast (moles, rash, lumps, nipple changes) Details: Data Unavailable Social History Tobacco Use Smoking Status Never Smokeless Tobacco Never Social History Substance and Sexual Activity Alcohol Use Yes Alcohol/week: 1.0 standard drink of alcohol Types: 1 Glasses of wine per week Comment: 1 glass wine month Social History Substance and Sexual Activity Drug Use No Family History Problem Relation Age of Onset Heart disease Father Osteoporosis Mother Thyroid disease Mother Dementia Mother 93 Breast cancer Sister 81 No Known Problems Brother Breast cancer Maternal Aunt Hip fracture Neg Hx BP 133/78 Pulse 90 Ht 5' 3 Wt 55.3 kg (122 lb) SpO2 97% BMI 21.61 kg/m Body mass index is 21.61 kg/m . Physical Exam: Bilateral breast examination reveals a curvilinear incisions in the inferior aspect of her left breast, right periareolar incision laterally from previous surgery and now the new left lower inner quadrant transverse incision under which I note a palpable postsurgical changes without a suspicious mass. I appreciate no other dominant or suspicious masses in either breast. I appreciate asked nipple-areolar inversion thickening or concern of Paget's disease. Bilateral skin envelopes are completely normal with no thickening retraction or concern of inflammatory recurrence.. Assessment: Personal history of phyllodes tumor of right breast removed in December 1989 and reexcised in January [address] Anderson as well as being status post guidewire localized excision of the left lower quadrant DCIS ER 20% OH 0% for which she underwent radiation therapy and now is on Arimidex therapy without evidence of metachronous or recurrent disease Plan: Follow-up with me in approximately 1 year following her next bilateral mammography due in July 2025 AUTHENTICATED BY VINCE JO, ON 07/15/2024 12:16:07 MM SCREENING PHOEBE BILATERAL Observed: 9:22 AM Status: F Source: [facility] EXAMINATION: MM SCREENING PHOEBE BILATERAL HISTORY: Personal history of breast cancer. Asymptomatic screening. History of left breast cancer 2020 status post radiation treatment. History of benign right breast biopsy. Family history of breast cancer including a sister and maternal aunt. COMPARISON: Mammograms dating back to 06/26/2021. TECHNIQUE: Digital CC and MLO views of the bilateral breasts were obtained. Computer-aided detection was utilized in the interpretation of this exam. We obtained standard views of each breast with 2D and 3D imaging. BREAST COMPOSITION: The breasts are heterogeneously dense, which may obscure small masses. FINDINGS: Scar marker along the inferior middle depth of the left breast with adjacent skin thickening presumably posttreatment changes. Similar dystrophic calcification along the posterior depth of the right breast. Neither breast demonstrates suspicious grouped calcifications, developing mass or interval distortion. IMPRESSION: Stable postsurgical and posttreatment changes of the left breast. No mammographic evidence of malignancy. BIRADS: BIRADS - CATEGORY 2 Benign, no evidence of malignancy. Normal interval follow-up is recommended in 12 months. OVERALL ASSESSMENT - BENIGN A letter of notification will be sent to the patient regarding the results. [facility], along with the [employer] and the [employer] recommend annual screening mammograms for women age 40 and older. MPH/mjr Workstation ID: [id number] Dictated by: MATIAS DUVALL on SatJul 13, 2024 11:37:52 AM EST Transcribed by: DC SENA on SatJul 13, 2024 1:21:16 PM EST Finalized by: MATIAS DUVALL on SatJul 13, 2024 1:27:57 PM EST ALLERGIES DATE TYPE / CODE NAME / CODE REACTION SEVERITY SOURCE Miscellaneous Allergy/948443532(SNOME D CT) NO KNOWN ALLERGIES [facility] ENCOUNTERS ADMIT/DISCHARGE ACCOUNT NUMBER ADMITTING ENCOUNTER CLASS LOCATION SOURCE 01/26/2025/01/27/20 [id number] PHYLICIA SINGH [facility] Ambulatory Building:[facility] 7 [facility] 01/13/2025/01/14/20 [id number] IESHA CHISHOLM [facility]/07/2025/01/08/20 [id number] Ambulatory Building:[facility] 12/28/2024/12/29/19 [id number] Ambulatory Building:[facility] 6 [facility] 11/30/2024/12/01/19 [id number] [facility]07[facility]28[facility]20 [id number] PHYLICIA SINGH [facility] Ambulatory Building:[address] 07/15/2024/07/15/20 24 [id number] Ambulatory Building:[facility] 07/13/2024/07/13/20 24 [id number] Ambulatory Building:[address] PAYERS ENCOUNTER GUARANTOR PAYER SUBSCRIBER SOURCE 01/26/2025 JENNI CALDWELLB: [address] [address]Qbu: ~([phone] (HP) Primary Insurance:MEDICARE Policy Number: [id number] ve Date:6671-47-56IAN J15 PART A CLAIMSPO [address] [address]Q[place]GW[place], [place] [address]PB: JENNI JOHNSONDOB: [id number] [address] [address]Sje: (HP) [facility] 01/26/2025 Secondary Insurance:Edwardo cy Number: [id number] ve Date:4309-16-48[address], [place] [address]BJ: JENNI CALDWELLB: [id number] [address] [address]Vay: (HP) [facility] 01/13/2025 [address]: [address], [place] [address]Xig: ~([phone] (HP) Primary Insurance:MEDICARE Policy Number: [id number] ve Date:2369-48-19PTJ J15 PART A CLAIMSPO [address] [address], [place] [address]VW: JENNI LEMASEDOB: [id number], [place] [address]Brw: (HP) [facility] 01/13/2025 Secondary Insurance:Edwardo becerra Number: [id number] ve Date:5834-86-79BQ [address], [place] [address]IM: JENNI LEMASEDOB: [id number], [place] [address]Jlp: (HP) [facility] 2025 JENNI LEMASEDOB: [address] [place] [address]Msd: ~([phone] (HP) Primary Insurance:MEDICARE Policy Number: [id number] Date:0836-80-22LMS 15 PART A CLAIMSPO [address] [address]ZE[place]MK, [place] [address]UZ: JENNI LEMASEDOB: [id number] [address], [place] [address]Fqg: (HP) [facility] 2025 Secondary Insurance:Edwardo becerra Number: [id number] ve Date:2625-11-04II [address]LLXPCKP, [place] [address]KK: JENNIALEX LEMASEDOB: [id number] [place] [address], [place] [address]Tmj: (HP) [facility] 12/28/2024 JENNI JOHNSONDOB: RT [address] [place] [address], [place] [address]Owa: ~([phone] (HP) Primary Insurance:MEDICARE Policy Number: [id number] Date:1250-95-36SOF J15 PART A CLAIMSPO [address] [address]FFKTTGITD, [place] [address]SS: JENNI LEMASEDOB: [id number] [address] [place] [address], [place] [address]Uhb: (HP) [facility] 12/28/2024 Secondary Insurance:Edwardo becerra Number: [id number] ve Date:9194-55-49[address], [place] [address]GI: JENNI LEMASEDOB: [id number] [address] [address]Pop: (HP) [facility] 11/30/2024 JENNI LEMASEDOB: STATE [address] [address]Xoi: ~([phone] (HP) Primary Insurance:MEDICARE Policy Number: [id number] Date:7629-84-86AKL 15 PART A CLAIMSPO [address] [address], [place] [address]OF: JENNI LEMASEDOB: [id number] [address] [address]Dfa: (HP) [facility] 11/30/2024 Secondary Insurance:Edwardo cy Number: [id number] ve Date:2862-87-83[address] [address]VS: JENNI Carlos Eduardo GROSEDOB: [id number] [address] [address]Yjg: (HP) [facility] 07/28/2024 JENNI LEMASEDOB: STATE [address] [address]Zol: ~(692 (HP) Primary Insurance:MEDICARE Policy Number: [id number] Date:0212-87-68FGU J15 PART A CLAIMSPO [id number] [place] [address]BI: JENNI LEMASEDOB: [id number] [address] [address]Mrf: (HP) [facility] 07/28/2024 Secondary Insurance:Edwardo cy Number: [id number] ve Date:8115-91-26[address], [place] [address]UA: JENNI LEMASEDOB: [id number] [address] [address]Zpl: (HP) [facility] 07/15/2024 JENNI LEMASEDOB: [address] [address]Jea: ~([phone] (HP) Primary Insurance:MEDICARE Policy Number: [id number] Date:8792-51-79CHZ J15 PART A CLAIMSPO [id number] [place] [address]PR: JENNI LEMASEDOB: [id number] [address]Dji: (HP) [facility] 07/15/2024 Secondary Insurance:Edwardo cy Number: [id number] ve Date:6168-88-00[address], [place] [address]RR: JENNI JOHNSONDOB: [id number] [place] [address]tv: (HP) [facility] 07/13/2024 JENNI JOHNSONDOB: [address] [place] [address]Wfx: ~([phone] (HP) Primary Insurance:MEDICARE Policy Number: [id number] Date:4395-79-40RPQ J15 PART A CLAIMSPO [address] [address]RYEGAYXYI, [place] [address]ZT: JENNI JOHNSONDOB: [id number] [address] [place] [address]Bth: (HP) [facility] 07/13/2024 Secondary [facility] cy Number: [id number] ve Date:4420-57-43[address], [place] [address]SY: JENNI JOHNSONDOB: [id number] [place] [address]Zrz: (HP) [facility]
--- OUTSIDE RECORDS SUMMARY | 2025-01-26 14:36 | XMS RPT_ITS ---
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) ADDISON MICHELLE ADDISON [facility] 03/01/2021 Admitting diagnosis Other specified disorders of bone density and structure, unspecified site / M85.80(ICD-10) ADDISON MICHELLE [facility] 2025 Admitting diagnosis Personal history of irradiation / Z92.3(ICD-10) [facility] 2025 Admitting diagnosis Encounter for screening for cardiovascular disorders / Z13.6(ICD-10) [facility] 11/30/2024 Admitting diagnosis Asymptomatic menopausal state / Z78.0(ICD-10) [facility] 06/06/2021 Admitting diagnosis skilled nursing (current) use of aromatase inhibitors / Z79.811(ICD-10) NA [facility] 07/15/2024 Admitting diagnosis Follow-up / UNK(Unknown) VINCE JO [facility] 07/13/2024 Admitting diagnosis Encounter for screening mammogram for malignant neoplasm of breast / Z12.31(ICD-10) [facility] PROCEDURES No Procedure Records Found RESULTS PHOSPHATE ( PHOSPHORUS) Collected: 03/25/2025 1:04 PM Status: F Source: [facility] Order Comment: FASTING:NO FASTING: NO TYPE CODE TESTS RESULT OUT OF RANGE REFERENCE UNITS LAB [id number] PHOSPHATE ( PHOSPHORUS) 4.9 High 2.1-4.3 mg/dL Performed By: #### 66863, 16 293 #### [facility], [address] [place] [address] Laborer Hoisting: Tamara Siu MD,PhD,ROMULO #### 862, 38788, 1005 #### [facility] [address] , [address] [place] [address] Laborer Hoisting: Rafael Muse MD IGF 1, LC/MS Collected: 5 1:04 PM Status: F Source: [facility] TYPE CODE TESTS RESULT OUT OF RANGE REFERENCE UNITS LAB [id number] IGF 1, LC/MS 91 34-246 ng/mL LAB [id number] Z SCORE (FEMALE) -0.2 -2.0 - +2.0 SD Result Comment: This test was developed and its analytical performance characteristics have been determined by [facility]. It has not been cleared or approved by the FDA. This assay has been validated pursuant to the CLIA regulations and is used for clinical purposes. Performed By: #### 06936, 16 293 #### [facility], [address] [place] [address] Laborer Hoisting: Tamara Siu MD,PhD,ROMULO #### 718, 39628, 1005 #### [email or web address] [address], [address] [place] [address] Laborer Hoisting: Rafael Muse MD TEST AUTHORIZATION 2 Collected: 025 1:04 PM Status: F Source: [facility] TYPE CODE TESTS RESULT OUT OF RANGE REFERENCE UNITS LAB [id number] TEST NAME: IGF 1, LC/MS LAB [id number] TEST CODE: [id number] LAB [id number] CLIENT CONTACT: [facility] [id number] REPORT ALWAYS MESSAGE SIGNATURE Result Comment: The laboratory testing on this patient was verbally requested or confirmed by the ordering physician or his or her authorized security representative after contact with an employee of [facility]. Federal regulations require that we maintain on file written authorization for all laboratory testing. Accordingly we are asking that the ordering physician or his or her authorized security representative sign a copy of this report and promptly return it to the client service professional. Signature: Performed By: #### 40310, 16 293 #### [facility], [address] [place] [address] Laborer Hoisting: Tamara Siu MD,PhD,ROMULO #### 718, 44472, 1005 #### [facility] [address] Laborer Hoisting: Rafael Muse MD IGF BINDING PROTEIN 1 (IGFBP 1) Collect ed: 03/25/2025 1:04 PM Status: F Source: [facility] TYPE CODE TESTS RESULT OUT OF RANGE REFERENCE UNITS LAB [id number] IGF BINDING PROTEIN 1 (IGFBP 1) 13 5-34 ng/mL Result Comment: The limit of detection of this assay is 5 ng/mL. A proportion of normal patients will have results less than 5 ng/mL. This test was developed and its analytical performance characteristics have been determined by [facility]. It has not been cleared or approved by the FDA. This assay has been validated pursuant to the CLIA regulations and is used for clinical purposes. Performed By: #### 52459, 16 293 #### [facility], [address] [place] [address] Laborer Hoisting: Tamara Siu MD,PhD,ROMULO #### 718, 21716, 1005 #### [facility] [address] Laborer Hoisting: Rafael Muse MD TEST AUTHORIZATION Collected: 1:04 PM Status: F Source: [facility] TYPE CODE TESTS RESULT OUT OF RANGE REFERENCE UNITS LAB [id number] TEST NAME: IGF BINDING PROTEIN 1 LAB [id number] TEST CODE: [id number] LAB [id number] CLIENT CONTACT: [facility] [id number] REPORT ALWAYS MESSAGE SIGNATURE Result Comment: The laboratory testing on this patient was verbally requested or confirmed by the ordering physician or his or her authorized security representative after contact with an employee of [facility]. Federal regulations require that we maintain on file written authorization for all laboratory testing. Accordingly we are asking that the ordering physician or his or her authorized security representative sign a copy of this report and promptly return it to the client service professional. Signature: LAB [id number] COMMENT Result Comment: Please have the ordering physician or his or her authorized security representative sign a copy of this report and promptly return it by faxing it to: [phone] or by returning the form to your piece goods clerk. Performed By: #### 22461, 16 293 #### [facility], [address] [place] [address] Laborer Hoisting: Tamara Siu MD,PhD,ROMULO #### 718, 24625, 1005 #### [facility] [address], [address] [place] [address] Laborer Hoisting: Rafael Muse MD PTH, INTACT AND CALCIUM Collected: 01/10 10:16 AM Status: F Source: [facility] Order Comment: FASTING:YES FASTING: YES TYPE CODE TESTS RESULT OUT OF RANGE REFERENCE UNITS LAB [id number] PARATHYROID HORMONE, INTACT 36 Normal 16-77 pg/mL Result Comment: Interpretive Guide Intact PTH Calcium ------- Normal Parathyroid Normal Normal Hypoparathyroidism Low or Low Normal Low Hyperparathyroidism Primary Normal or High High Secondary High Normal or Low Tertiary High High Non-Parathyroid Hypercalcemia Low or Low Normal High LAB [id number] CALCIUM 9.4 Normal 8.6-10.4 mg/dL Performed By: #### 46229 ### # [facility] [address] [address], [address] [place] [address] Laborer Hoisting: Adi Yañez MD,PhD #### 48464, 81771 #### [facility] [address] [facility] [place] [place] [address] Laborer Hoisting: Gary Sánchez M.D.,PhD #### 331, 0052, 642, 381, 21168, 98004, 375, 718, 223 #### [facility] [address], [address] [place] [address] Laborer Hoisting: Rafael Muse MD #### [id number] #### [facility], [address] [place] [address] Laborer Hoisting: Tamara Siu MD,PhD,ROMULO CELIAC DISEASE COMPREHENSIVE PANEL Collected: 01/25/2025 10:16 AM Status: F Source: [facility] TYPE CODE TESTS RESULT OUT OF RANGE REFERENCE UNITS LAB [id number] INTERPRETATION see note Result Comment: No serologic al evidence of celiac disease. tTG IgA may normalize in individuals with celiac disease who maintain a gluten-free diet. Consider HLA DQ2 and DQ8 testing to rule out celiac disease. Celiac disease is extremely rare in the absence of DQ2 or DQ8. LAB [id number] TISSUE TRANSGLUTAMINASE AB, IGA <1.0 <15.0 U/mL Result Comment: Value Interpretation <15.0 Antibody not detected > or = 15.0 Antibody detected LAB [id number] IMMUNOGLOBULIN A 119 70-320 mg/dL Performed By: #### 53814 ### # [facility] [address] [address], [address] [place] [address] Laborer Hoisting: Adi Yañez MD,PhD #### 02331, 46169 #### [facility] [address] [facility] [place] [address] Laborer Hoisting: Gary Sánchez M.D.,PhD #### 306, 8837, 622, 381, 49300, 39779, 375, 718, 223 #### [facility] [address], [address] [place] [address] Laborer Hoisting: Rafael Muse MD #### 70867 #### [facility], [address] [place] [address] Laborer Hoisting: Tamara Siu MD,PhD,ROMULO ALBUMIN Collected: 10:16 AM Status: F Source: [facility] TYPE CODE TESTS RESULT OUT OF RANGE REFERENCE UNITS LAB [id number] ALBUMIN 4.4 Normal 3.6-5.1 g/dL Performed By: #### 56589 ### # [facility] [address] [address], [address] [place] [address] Laborer Hoisting: Adi Yañez MD,PhD #### 29720, 73254 #### [facility] [address] [facility] [address] [place] Laborer Hoisting: Gary Sánchez M.D.,PhD #### 306, 8837, 622, 381, 10819, 70810, 375, 718, 223 #### [facility] [address], [address] [place] [address] Laborer Hoisting: Rafael Muse MD #### 89444 #### [facility]/[address] [address] Laborer Hoisting: Tamara Siu MD,PhD,ROMULO CREATININE Collected: 10:16 AM Status: F Source: [facility] TYPE CODE TESTS RESULT OUT OF RANGE REFERENCE UNITS LAB [id number] CREATININE 0.90 Normal 0.60-0.95 mg/dL LAB [id number] EGFR 65 Normal > OR = 60 mL/min/1. 73m2 Performed By: #### 87073 ### # [facility] [address] [place] [address], [address] [place] [address] Laborer Hoisting: Adi Yañez MD,PhD #### 07500, 31578 #### [facility] [address] [facility] [address] [place] Laborer Hoisting: Gary Sánchez M.D.,PhD #### 306, 8837, 622, 381, 13529, 77303, 375, 718, 223 #### [facility] [address], [address] [place] [address] Laborer Hoisting: Rafael Muse MD #### 01034 #### [facility], [address] [place] [address] Laborer Hoisting: Tamara Siu MD,PhD,ROMULO CREATININE, 24 HOUR URINE Collected: 10:16 AM Status: F Source: [facility] TYPE CODE TESTS RESULT OUT OF RANGE REFERENCE UNITS LAB [id number] CREATININE, 24 HOUR URINE 0.76 Normal 0.50-2.15 g/24 h Result Comment: URINE VOLUME : Performed By: #### 35809 ### # [facility] [address] [address], [address] [place] [address] Laborer Hoisting: Adi Yañez MD,PhD #### 63390, 56687 #### [facility] [address] [facility] [place], [place] Laborer Hoisting: Gary Sánchez M.D.,PhD #### 306, 8837, 622, 381, 61189, 07629, 375, 718, 223 #### [facility] [address] [facility], [address] [place] [address] Laborer Hoisting: Rafael Muse MD #### 49459 #### [facility], [address] [place] [address] Laborer Hoisting: Tamara Siu MD,PhD,ROMULO MAGNESIUM Collected: 10:16 AM Status: F Source: [facility] TYPE CODE TESTS RESULT OUT OF RANGE REFERENCE UNITS LAB [id number] MAGNESIUM 2.2 Normal 1.5-2.5 mg/dL Performed By: #### 84246 ### # [facility] [address], [address] [place] [address] Laborer Hoisting: Adi Yañez MD,PhD #### 59826, 38420 #### [facility] [address] [facility] [address] [place] Laborer Hoisting: Gary Sánchez M.D.,PhD #### 306, 8837, 622, 381, 17545, 44076, 375, 718, 223 #### [facility] [address] [address] Laborer Hoisting: Rafael Muse MD #### 09902 #### [facility], [address] [place] [address] Laborer Hoisting: Tamara Siu MD,PhD,ROMULO PHOSPHATE ( PHOSPHORUS) Collected: 10:16 AM Status: F Source: [facility] TYPE CODE TESTS RESULT OUT OF RANGE REFERENCE UNITS LAB [id number] PHOSPHATE ( PHOSPHORUS) 5.3 High 2.1-4.3 mg/dL Performed By: #### 97049 ### # [facility] [address] [address], [address] [place] [address] Laborer Hoisting: Adi Yañez MD,PhD #### 81077, 79161 #### [facility] [address] [facility] [place] [address] Laborer Hoisting: Gary Sánchez M.D.,PhD #### 306, 8837, 622, 381, 93563, 86853, 375, 718, 223 #### [facility] [address], [address] [place] [address] Laborer Hoisting: Rafael Muse MD #### 83523 #### [facility], [address] [place] [address] Laborer Hoisting: Tamara Siu MD,PhD,ROMULO C TELOPEPTIDE (CTX) Collected: 01/26/20 10:16 AM Status: F Source: [facility] TYPE CODE TESTS RESULT OUT OF RANGE REFERENCE UNITS LAB [id number] C TELOPEPTIDE (CTX) 63 see note pg/mL [...] loss. For additional information, please refer to https://education.[employer]/faq/XBL467 (This link is being provided for informational/ educational purposes only.) Performed By: #### 01725 ### # [facility] [address] [address], [address] [place] [address] Laborer Hoisting: Adi Yañez MD,PhD #### 26071, 63202 #### [facility] [address] [facility] [place] Laborer Hoisting: Gary Sánchez M.D.,PhD #### 306, 8837, 622, 381, 51305, 05204, 375, 718, 223 #### [facility] [address], [address] [place] [address] Laborer Hoisting: Rafael Muse MD #### 67986 #### [facility] [address] [address] Laborer Hoisting: Tamara Siu MD,PhD,ROMULO CALCIUM, 24 HOUR URINE (W/O CREATININE) Collected: 01/25/2025 10:16 AM Status: F Source: [facility] TYPE CODE TESTS RESULT OUT OF RANGE REFERENCE UNITS LAB [id number] TOTAL VOLUME 2000 mL LAB [id number] CALCIUM, 24 HOUR URINE 114 35-250 mg/24 h Result Comment: Low Calcium Diet: 35-200 mg/24h Performed By: #### 92404 ### # [facility] [address] [address], [address] [place] [address] Laborer Hoisting: Adi Yañez MD,PhD #### 96607, 42461 #### [facility] [address] [facility] [address] [place] Laborer Hoisting: Gary Sánchez M.D.,PhD #### 306, 8837, 622, 381, 83305, 77533, 375, 718, 223 #### [facility] [address] [place] [address], [address] [place] [address] Laborer Hoisting: Rafael Muse MD #### 92918 #### [facility], [address] [place] [address] Laborer Hoisting: Tamara Siu MD,PhD,ROMULO KAPPA/LAMBDA LIGHT CHAINS FR EE WITH RATIO, SERUM Collected: 01/25/2025 10:16 AM Status: F Source: [facility] TYPE CODE TESTS RESULT OUT OF RANGE REFERENCE UNITS LAB [id number] KAPPA LIGHT CHAIN, FREE, SERUM 17.1 Normal 3.3-19.4 mg/L LAB [id number] LAMBDA LIGHT CHAIN, FREE, SERUM 11.1 Normal 5.7-26.3 mg/L LAB [id number] KAPPA/JONES DA LIGHT CHAINS FREE WITH RATIO, [...] therapy of these disorders. Performed By: #### 14457 ### # [facility] [address] [address], [address] [place] [address] Laborer Hoisting: Adi Yañez MD,PhD #### 28254, 09337 #### [facility] [address] [place], [place] Laborer Hoisting: Gary Sánchez M.D.,PhD #### 306, 8837, 622, 381, 27874, 55225, 375, 718, 223 #### [facility] [address], [address] [place] [address] Laborer Hoisting: Rafael Muse MD #### 69197 #### [facility], [address] [place] [address] Laborer Hoisting: Tamara Siu MD,PhD,ROMULO VITAMIN D,25-OH,TOTAL,IA Collected: 10:16 AM Status: F Source: [facility] TYPE CODE TESTS RESULT OUT OF RANGE REFERENCE UNITS LAB [id number] VITAMIN D,25-OH,TOT AL,IA 53 Normal 30-100 ng/mL Result Comment: Vitamin D St [facility]us 25-OH Vitamin D: Deficiency: <20 ng/mL Insufficiency: 20 - 29 ng/mL Optimal: > or = 30 ng/mL For 25-OH Vitamin D testing on patients on D2-supplementation and patients for whom quantitation of D2 and D3 fractions is required, the [facility](TM) 25-OH VIT D, (D2,D3), LC/MS/MS is recommended: order code 17967 (patients >2yrs). See Note 1 Note 1 For additional information, please refer to http://education.[employer]/faq/PHQ317 (This link is being provided for informational/ educational purposes only.) Performed By: #### 17821 ### # [facility] [address] [address], [address] [place] [address] Laborer Hoisting: Adi Yañez MD,PhD #### 89037, 83753 #### [facility] [address] [place], [place] Laborer Hoisting: Gary Sánchez M.D.,PhD #### 306, 8837, 622, 381, 95798, 11353, 375, 718, 223 #### [facility] [address], [address] [place] [address] Laborer Hoisting: Rafael Muse MD #### 25821 #### [facility], [address] [place] [address] Laborer Hoisting: Tamara Siu MD,PhD,ROMULO CALCIUM, IONIZED Collected: 10:16 AM Status: F Source: [facility] TYPE CODE TESTS RESULT OUT OF RANGE REFERENCE UNITS LAB [id number] CALCIUM, IONIZED 5.1 Normal 4.7-5.5 mg/dL Performed By: #### 17767 ### # [facility] [address] [place] [address], [address] [place] [address] Laborer Hoisting: Adi Yañez MD,PhD #### 18709, 82019 #### [facility] [address] [facility] [place] [address] Laborer Hoisting: Gary Sánchez M.D.,PhD #### 306, 8837, 622, 381, 51875, 88925, 375, 718, 223 #### [facility] [address], [address] [place], [place] [address] Laborer Hoisting: Rafael Muse MD #### 50798 #### [facility], [address] [place] [address] Laborer Hoisting: Tamara Siu MD,PhD,ROMULO SODIUM W/O CREATININE, 24 HO UR URINE Collected: 01/25/2025 10:16 AM Status: F Source: [facility] TYPE CODE TESTS RESULT OUT OF RANGE REFERENCE UNITS LAB [id number] SODIUM, 24 HOUR URINE 80 52-380 mmol/24 h Result Comment: TE [facility] [address],[address] [facility] [address] Adi Yañez MD, PhD Performed By: #### 50376 ### # [facility] [address] [place] [address], [address] [place] [address] [place] [address] Laborer Hoisting: Adi Yañez MD,PhD #### 60238, 26435 #### [facility] [address] [facility] [address] [place] Laborer Hoisting: Gary Sánchez M.D.,PhD #### 306, 8837, 622, 381, 47075, 87922, 375, 718, 223 #### [facility] [address] [facility], [address] [place] [address] Laborer Hoisting: Rafael Muse MD #### 49168 #### [facility] [address] [address] Laborer Hoisting: Tamara Siu MD,PhD,ROMULO PROTEIN ELECTROPHORESIS, BLOOD Collecte d: 01/25/2025 10:13 AM Status: F Source: [facility] TYPE CODE TESTS RESULT OUT [...] chains if clinically indicated. Performed By: #### 18986 ### # [facility] [place], [place] [address] Alan Rojas M.D. [id number] IMMUNOFIXATION, SERUM Collected: 2024 10:13 AM Status: F Source: [facility] TYPE CODE TESTS RESULT OUT OF RANGE REFERENCE UNITS LAB SIFIX IMMUNOFIXATION, SERUM Normal Normal LAB COMSIFIX SIFIX INTERPRETATION No paraproteins detected. A negative serum immunofixation and/or serum protein electrophoresis is insufficient to rule out a monoclonal protein. Recommend serum free light chains if clinically indicated. Reviewed by Pathologist: Ivy Palacio MD. Performed By: #### 05347 ### # [facility] [address] [address] Alan Rojas M.D. [id number] PROGRESS Observed: 01/13/2025 2:00 PM Status: COMPLETED Source: [facility] Reason for visit/chief compl aint: management of osteopenia. On Prolia Date: 01/13/2025 Referring Provider: Iesha Chisholm CNP Primary Care Provider: Phylicia Singh Chi, MD HPI: Ms. Johnson is a 80 y.o. female with hx of arthritis, breast cancer s/p surgery 2020, XRT and hormonal therapy, hypothyroidism. Anastrozole was started in 01/2021 with plans to keep till 02/2026. Osteopenia was diagnosed in ?2369-0600 per patient. There is no personal history [...] hyperparathyroidism/hypercalcemia Cardiac risk factors: personal history of AR, CVA; known coronary or cerebrovascular disease; HTN, [...] PEDIATRAC SCOPE; Surgeon: Vince Jo MD; [place] [facility] [place] Service: General Surgery cystosarcoma Right 1989 [...] 0.5 11/30/2020 No results found for: TSH, D2QUIQL, THYROIDAB Lab Results Component Value Date CALCIUM 9.3 11/30/2020 No results found for: HGBA1C No results found for: LDLCALC, CHOL, HDL, TRIG, CHOLHDL No results found for: MICROALBUR, [id number] No results found for: CPEPTIDE 03/11/2023: Vit [...] hip. Instrument: The examination was done at [facility]. [employer]; serial number: [id number]. FINDINGS: BONE MINERAL DENSITY DETERMINATION: Femoral Neck [...] This Encounter Procedures PTH Intact (Processed at [facility]) Standing Status: Future Expiration Date: [...] Release to patient: Immediate CARVEOUT: Send to [facility] Immunofixation, Serum Standing Status: Future Expiration Date: 01/13/2026 Release to patient: Immediate CARVEOUT: Send to [facility] Immunoglobulin Free Light Chains,Blood Standing Status: [...] 01/13/2026 Release to patient: Immediate Celiac Serology [place] Panel Standing Status: Future Expiration Date: 01/13/2026 [...] Observed: 01/08/2025 7:43 AM Status: F Source: [facility] Patient Info Name: JENNI JOHNSON Age: 80 years : 1945 Gender: Female Ht: 160 cm Wt: 54 kg BSA: 1.56 m2 HR: 91 bpm BP: 130 / 66 mmHg Heart Rhythm: Sinus Rhythm Technical Quality: Technically difficult Exam Date: 2025 2:57 PM Patient Status: Outpatient Finisher Machine: Sharon Huffman RN, [facility] Exam Type: ECHOCARDIOGRAM COMPLETE W CONTRAST Study Info Indications Z51.11 - Encounter for antineoplastic chemotherapy Referring Physician: IESHA CHISHOLM ; [id number] BMI: 21.26 kg/m2 Summary 1. This study [...] mmHg MV VTI 20 cm MV Decel [place] 399 cm/s2 MV PHT 69 ms MV [...] ml/m2 16-34 RA Dimensions RA Systolic [place] Length (4C) 3.67 cm <=5.30 RA Area (4C) 10.0 cm2 <=18.0 RA Area (4C) Index 6 cm2/m2 RA ESV (4C MOD) 22 ml 15-27 RA ESV Index (4C MOD) 14 ml/m2 <=27 Report Signatures Finalized by Aixa Dailey MD on 01/08/2025 07:43 AM XR BONE DENSITY DEXA AXIAL Observed: 1:16 PM Status: F Source: [facility] Order Comment: Injury/Trauma or Illness?:Illness/Other How long [...] hip. Instrument: The examination was done at [facility]. [employer]; serial number: [id number]. FINDINGS: BONE MINERAL DENSITY DETERMINATION: Femoral Neck [...] or low BMD. Bridget MS, Dayanna SL, Rachnaa KL, Estefanía EM, Helen KG, AJ, Liz ES. The clinician's guide to prevention and treatment of osteoporosis. Osteoporosis Int. 2021;33(10):0174-1480. doi: 10.1007/o28111-297-38585-a. Epub 2021Dec 07. Erratum in: Osteoporosis Int. 2021Mar 08;: PMID: [id number]; PMCID: [id number]. Workstation ID: [id number] Dictated by: MONSERRAT TA on SatDecember 29, 2024 12:39:12 PM EDT Transcribed by: MONSERRAT TA on SatDecember 29, 2024 12:39:12 PM EDT Finalized by: ADRIENNE NAGY on SatDecember 29, 2024 5:05:01 PM EDT PROGRESS Observed: 11/30/2024 9:17 AM Status: COMPLETED Source: [facility] Breast Cancer Survivorship C linic Visit Patient Name: Jenni Johnson MR #: [id number] : 1945 Reason for visit: Breast cancer [...] February 2026. Survivorship Assessment and Recommendations Assessment: Jenni is a 79 y.o. female who presented [...] tumor was ER positive at 20% and DE negative. -Following her resection, she proceeded with [...] history. Her last DEXA was 01/05/21 at [place] which showed osteopenia but showed improvement from [...] and comments versus needle localization excisionalbiopsy in [place] and she elected to proceed with the latter. She had this on 12/09/2020. 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 The margins were uninvolved. It also noted fibrocystic changes with associated microcalcifications. The tumor was ER positive at 20% and DE negative. She tolerated the surgery well. She [...] years Age of menopause at 51 years. 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 [...] index is 21.27 kg/m . Nutrition: The soil expert will call the patient regarding dietary recommendations [...] of recurrence: Patient declined to meet with social insurance administrator. A total of 60 minutes were spent kmif-on-loup with the patient during this encounter with greater than 50% spent on counseling and coordination of care.This includes chart review, patient assessment and review of HPI, collaboration with ancillary team members (social work and soil expert if applicable). We discussed in depth her [...] Observed: 07/15/2024 12:12 PM Status: COMPLETED Source: [facility] AMBULATORY BREAST CONSULT HISTORY & PHYSICAL EXAMINATION Patient Name: Jenni Johnson MR #: [id number] : 1945 Physicians: Phylicia Singh Chi, MD [...] 20%, 1+ intensity, resulted by image analysis) DE: Negative (0%) All controls show appropriate reactivity. The Professional Component of immunohistochemistry and/or in-situ hybridization was completed at [facility], [address] [place] [address]. CPT codes: 99579 x 2 Addendum electronically signed by Roge [...] 20%, 1+ intensity, resulted by image analysis) DE: Negative (0%) All controls show appropriate reactivity. The Professional Component of immunohistochemistry and/or in-situ hybridization was completed at [facility], [address] [place] [address]. CPT codes: 81047 x 2 Addendum electronically signed by Roge [...] which is as follows: EXAMINATION: MM SCREENING PHOEBE BILATERAL HISTORY: ORDERING SYSTEM PROVIDED HISTORY: annual [...] years Age of menopause at 51 years. 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 [facility], along with the [employer] and the [employer] recommend annual screening mammograms for women age 40 and older. MPH/mjr Workstation ID: [id number] Dictated by: MATIAS DUVALL on SatJul 13, 2024 11:37:52 AM EST Transcribed by: DC SENA on SatJul 13, 2024 1:21:16 PM EST Finalized by: MATIAS DUVALL on SatJul 13, 2024 1:27:57 PM EST ALLERGIES DATE TYPE / CODE NAME / CODE REACTION SEVERITY SOURCE Miscellaneous Allergy/[id number](SNOME D CT) NO KNOWN ALLERGIES [facility] ENCOUNTERS ADMIT/DISCHARGE ACCOUNT NUMBER ADMITTING ENCOUNTER CLASS LOCATION SOURCE 01/26/2025/01/27/20 [id number] PHYLICIA SINGH [facility] Ambulatory Building[facility] 7 [facility] 01/13/2025/01/14/20 [id number] IESHA CHISHOLM [facility]/07/[facility]25/01/08/20 [id number] Ambulatory Building:[facility] 12/28/2024/12/29/19 [id number] Ambulatory Building:[facility] 6 [facility] 11/30/2024/12/01/19 [id number] [facility]07/28/20 [id number] PHYLICIA SINGH [facility] Ambulatory Building:[address] 07/15/2024/07/15/20 24 [id number] Ambulatory Building:[facility] 07/13/2024/07/13/20 24 [id number] Ambulatory Building:[address] PAYERS ENCOUNTER GUARANTOR PAYER SUBSCRIBER SOURCE 01/26/2025 JENNI CALDWELLB: [address] [address]Iqb: ~([phone] (HP) Primary Insurance:MEDICARE Policy Number: [id number] Date:8086-74-81EXF J15 PART A CLAIMSPO [address], [place] [address]VA: JENNI JOHNSONDOB: [id number] [address] [address]Emu: (HP) [facility] 01/26/2025 Secondary Insurance:Edwardo cy Number: [id number] ve Date:5987-91-50[address], [place] [address]DT: JENNI CALDWELLB: [id number] [address] [address]Rjz: (HP) [facility] 01/13/2025 JEN[address] J[address]OND[address]: [address] [place] [address]Nwq: ~[phone] (HP) Primary Insurance:MEDICARE Policy Number: [id number] Date:0555-35-48GZA J15 PART A CLAIMSPO [address] [address], [place] [address]UY: JENNI LEMASEDOB: [id number], [place] [address]Lvk: (HP) [facility] 01/13/2025 Secondary Insurance:Edwardo becerra Number: [id number] ve Date:1223-27-45[address]TF, [place] [address]UR: JENNI LEMASEDOB: [id number] [address]Rvl: (HP) [facility] 2025 JENNI LEMASEDOB: [address] [place] [place] [address]Vnu: ~([phone] (HP) Primary Insurance:MEDICARE Policy Number: [id number] Date:1796-36-38LBK 15 PART A CLAIMSPO [address] [address]RFXDGORYZ, [place] [address]NH: JENNI LEMASEDOB: [id number] [address]For: (HP) [facility] 2025 Secondary Insurance:Edwardo becerra Number: [id number] ve Date:4856-65-64HF [address]UAGMK, [place] [address]PY: JENNIALEX LEMASEDOB: [id number] [place] [address], [place] [address]Rxi: (HP) [facility] 12/28/2024 JENNI JOHNSONDOB: RT [address] [place] [address], [place] [address]Imb: ~([phone] (HP) Primary Insurance:MEDICARE Policy Number: [id number] Date:3089-62-63TUG J15 PART A CLAIMSPO [address] [address]FC[place]ZG, [place] [address]LZ: JENNI LEMASEDOB: [id number] [address] [place] [address], [place] [address]Amy: (HP) [facility] 12/28/2024 Secondary Insurance:Edwardo becerra Number: [id number] ve Date:7706-60-45[address]GJALGCL, [place] [address]LR: JENNI LEMASEDOB: [id number] [address] [address]Gzo: (HP) [facility] 11/30/2024 JENNI LEMASEDOB: STATE [address] [address]Aye: ~([phone] (HP) Primary Insurance:MEDICARE Policy Number: [id number] Date:9241-94-79ASP 15 PART A CLAIMSPO [address] [address]QHLGVNOVX, [place] [address]JG: JENNI LEMASEDOB: [id number] STATE [address] [address]Yid: (HP) [facility] 11/30/2024 Secondary Insurance:Edwardo cy Number: [id number] ve Date:2600-14-61[address] [address]VF: JENNI Carlos Eduardo GROSEDOB: [id number] STATE [address] [address]Ltt: (HP) [facility] 07/28/2024 JENNI LEMASEDOB: STATE [address] [address]Wee: ~([phone] (HP) Primary Insurance:MEDICARE Policy Number: [id number] Date:1640-14-73WDM J15 PART A CLAIMSPO [id number] [address]ZD: JENNI LEMASEDOB: [id number] [address] [address]Jwb: (HP) [facility] 07/28/2024 Secondary Insurance:Edwardo cy Number: [id number] ve Date:1142-19-90[address], [place] [address]OV: JENNI LEMASEDOB: [id number] [address] [address]Xlt: (HP) [facility] 07/15/2024 JENNI LEMASEDOB: [address] [address]Gbq: ~([phone] (HP) Primary Insurance:MEDICARE Policy Number: [id number] Date:5575-45-43GTC J15 PART A CLAIMSPO [id number] [address]XT: JENNI LEMASEDOB: [id number] STATE [address] [address]Ftx: (HP) [facility] 07/15/2024 Secondary Insurance:Edwardo cy Number: [id number] ve Date:0806-78-35KV [address]QPHIBCO, [place] [address]OC: JENNI JOHNSONDOB: [id number] [address] [place] [address]Eza: (HP) [facility] 07/13/2024 JENNI JOHNSONDOB: [address] [place] [address]Eln: ~(344 (HP) Primary Insurance:MEDICARE Policy Number: [id number] Date:6312-09-62ZVI J15 PART A CLAIMSPO [address] [address]NSFWNSQ, [place] [address]QG: JENNI JOHNSONDOB: [id number] [address] [place] [address]Wua: (HP) [facility] 07/13/2024 [facility] Number: [id number] ve Date:2552-99-48[address]DDJMK[place], [place] [address]KW: JENNI JOHNSONDOB: [id number] [address] [place] [address]Oll: (HP) [facility]
== END | disposition home or self-care (01) ==
LOC: POLAB3 10:43
PROVIDERS: PCP Family Medicine Geriatric Medicine; Visit Provider Family Medicine Geriatric Medicine
DX: E83.39 Other disorders of phosphorus metabolism (principal)
CPT/HCPCS: 36415; 84100